=== PATIENT | female | born 1940 | race Caucasian/White ===

== ENCOUNTER 2016-12-01 15:33 | Emergency (ER) | payer MEDICARE ==
[~2016-12-01] VITALS: Ht 157.5 cm; Wt 204.2 kg
[~2016-12-01 15:33] MED LIST: ASCO500T20 PO; ASPI325T32 PO; CINNAMON PO; CIPR-225 PO; CITA10SO PO; CLN150C1RX; CTLP20T PO; DIAZ-345 PO; E400C PO; ENAL20TA PO; GLIP10TA13 PO; HCTZ12.5T; HYDR-3720 PO; HYDROCO/APAP; LEVO500T2 PO; LEVO750T24 PO; LSNP10T PO; LVF250T; LVF500T; METF1000 PO; MTF500T PO; NITR-65 PO; OMEG1CAP51 PO; TERB250T10 PO
--- OUTSIDE RECORDS SUMMARY | 2016-12-01 15:38 | XMS REPORT | Continuity of Care Document ---
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 If you do not see the information that you expected, contact Release of Information in the Health Information Management department at [phone] for further assistance in locating additional records.[facility] Active Allergies and Adverse Reactions Allergen Noted Date Severity Reactions Comments Pcn 04/12/2014 UNKNOWN Current Medications Prescription Sig. Disp. Refills Start End Date Status Date lisinopril (PRINIVIL; Take 10 mg by mouth Active ZESTRIL) 10 mg tablet daily. metFORMIN (GLUCOPHAGE) Take 500 mg by mouth Active 500 mg tablet twice daily with meals. citalopram (CELEXA) 20 mg Take 20 mg by mouth Active tablet daily. ASCORBATE CALCIUM Take by mouth daily. Active (VITAMIN C PO) FLAXSEED OIL (OMEGA 3 PO) Take 1,000 mg by mouth Active daily. Active Problems Not on file Social History Tobacco Use Types Packs/Day Years Used Date Never Assessed Plan of Care Health Maintenance Due Date Last Done Comments Physical (Comprehensive) 1947 Exam Pertussis Vaccine 1951 Tetanus Vaccine 1957 Colorectal Cancer 1990 Screening Shingles Vaccine 2000 Osteoporosis Screening 2005 Prevnar/Pneumovax (#1) 2005 Influenza Vaccine 07/05/2016 Results from Last 3 Months Not on file
[2016-12-01] MEDS ORDERED: RT-ALBUTEROL/IPRATROPIUM 3 ML (DUONEB) VIAL INH ONE (15:45)
--- NOTE | 2016-12-01 15:54 | ED General ---
General Stated Complaint: BILAT FOOT PAIN Source of Information: Patient Exam Limitations: No Limitations History of Present Illness Time Seen by Provider: 15:53 Initial Comments To ER per EMS with reports of shortness of breath since last night and a cough as well as bilateral foot pain as an ongoing issue. States that she is scheduled to see Dr. Reed on Saturday (today being Saturday). No fevers or chills. She is a bedbound diabetic. Timing/Duration: 1-2 Days Severity: Moderate Associated Systoms: CoughNo Fever/Chills, No Nausea/Vomiting Allergies and Home Medications Allergies Coded Allergies: Penicillins (Verified Allergy, Unknown, 05/01/07) Home Medications Aspirin 325 Mg Tablet.dr 650 MG PO BID PRN PRN HEADACHE (Reported) TAKES 2 (325MG) TABLETS Ciprofloxacin HCl 500 Mg Tablet #20 500 MG PO BID Prescribed by: SYLVESTER YAP on 10/04/16 1722 Enalapril Maleate 20 Mg Tablet 20 MG PO DAILY (Reported) Glipizide 10 Mg Tablet 10 MG PO DAILY (Reported) Levofloxacin 500 Mg Tablet #5 500 MG PO DAILY Prescribed by: CRISS CUMMINS on 09/06/16 1820 Metformin HCl 1,000 Mg Tablet 1,000 MG PO BID (Reported) Nitrofurantoin Monohyd/M-Cryst 100 Mg Capsule #30 1 TAB PO BID Prescribed by: STEPHANIE BYERS on 03/22/16 0721 Terbinafine HCl 250 Mg Tablet #84 250 MG PO DAILY Prescribed by: SYLVESTER YAP on 10/04/16 1722 Constitutional: see HPINo chills, No fever EENTM: see HPI Respiratory: see HPI cough short of breath Cardiovascular: no symptoms reported Genitourinary: no symptoms reported Musculoskeletal: no symptoms reported Skin: no symptoms reported Psychiatric/Neurological: No Symptoms Reported Past Sdpzbwy-Owtzli-Peechz Hx Patient Social History Former Smoker/When Quit: Sep 21, 2002 Recent Hopitalizations: Yes (APRIL 2007, LLE ULCER) Immunizations Up To Date Tetanus Booster (TDap): Unknown PED Vaccines UTD: No Seasonal Allergies Seasonal Allergies: No Surgeries HX Surgeries: Yes (OVARIAN CYST, FATTY TUMOR REMOVAL LUE) Respiratory Hx Respiratory Disorders: No Cardiovascular Hx Cardiac Disorders: Yes (NEW ONSET 03/19/16) Cardiac Disorders: Hypertension Neurological Hx Neurological Disorders: Yes (2010) Neurological Disorders: Headaches /Migraines, TIA Reproductive System Hx Reproductive Disorders: No Sexually Transmitted Disease: No HIV/AIDS: No Genitourinary Hx Genitourinary Disorders: Yes Genitourinary Disorders: UTI-Chronic Gastrointestinal Hx Gastrointestinal Disorders: Yes Gastrointestinal Disorders: Gall Bladder Disease Musculoskeletal Hx Musculoskeletal Disorders: Yes Musculoskeletal Disorders: Arthritis Endocrine Hx Endocrine Disorders: Yes (MORBID OBESITY) Endocrine Disorders: Diabetes, Non-Insulin dep HEENT HX ENT Disorders: No Cancer Hx Cancer: No Psychosocial Hx Psychiatric Problems: Yes Behavioral Health Disorders: Depression Integumentary HX Skin/Integumentary Disorder: No (cellulitis, DRY SKIN) Blood Transfusions Hx Blood Disorders: No Family Medical History Family Medial History: Alcoholism 03 FATHER FH: stomach cancer 03 MOTHER Physical Exam Vital Signs Vital Sign - Last 12Hours 12/01/16 12/01/16 15:50 15:55 Temp 98.5 Pulse 94 Resp 22 B/P 171/123 Pulse Ox 97 O2 Delivery Room Air Capillary Refill : General Appearance: No Apparent Distress WD/WN Chronically ill Obese HEENT: PERRL/EOMI TMs Normal Neck: Full Range of Motion Normal Inspection Respiratory: No Accessory Muscle Use No Respiratory Distress Wheezing (left lung mendez (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 No drainage. The erythema does not extend proximally beyond the first MTP joint of each foot. There is no cellulitis of the foot.) Neurologic/Psychiatric: Alert Oriented x3 Skin: Normal Color Warm/Dry Progress/Results/Core Measures Results/Orders Lab Results Laboratory Tests Test 12/01/16 15:48 Range/Units Alanine Aminotransferase (ALT/SGPT) 22 0-55 U/L Albumin 3.5 3.2-4.5 G/DL Alkaline Phosphatase 75 40-136 U/L Anion Gap 11 5-14 MMOL/L Aspartate Amino Transf (AST/SGOT) 36 H 5-34 U/L B-Type Natriuretic Peptide 38.0 <100.0 PG/ML BUN/Creatinine Ratio 13 Basophils # (Auto) 0.0 0.0-0.1 10^3/uL Basophils (%) (Auto) 0 0-10 % Blood Urea Nitrogen 10 7-18 MG/DL Calcium Level 8.9 8.5-10.1 MG/DL Carbon Dioxide Level 22 21-32 MMOL/L Chloride Level 104 98-107 MMOL/L Creatinine 0.79 0.60-1.30 MG/DL Eosinophils # (Auto) 0.4 H 0.0-0.3 10^3/uL Eosinophils (%) (Auto) 4 0-10 % Estimat Glomerular Filtration Rate > 60 Glucose Level 161 H 70-105 MG/DL Hematocrit 45 35-52 % Hemoglobin 15.2 11.5-16.0 G/DL Lymphocytes # (Auto) 2.8 1.0-4.0 X 10^3 Lymphocytes (%) (Auto) 29 12-44 % Mean Corpuscular Hemoglobin 31 25-34 PG Mean Corpuscular Hemoglobin Concent 34 32-36 G/DL Mean Corpuscular Volume 91 80-99 FL Mean Platelet Volume 9.4 7.4-10.4 FL Monocytes # (Auto) 0.7 0.0-1.0 X 10^3 Monocytes (%) (Auto) 7 0-12 % Neutrophils # (Auto) 5.6 1.8-7.8 X 10^3 Neutrophils (%) (Auto) 59 42-75 % Platelet Count 398 130-400 10^3/uL Potassium Level 5.2 H 3.6-5.0 MMOL/L Red Blood Count 4.93 4.35-5.85 10^6/uL Red Cell Distribution Width 14.4 10.0-14.5 % Sodium Level 137 135-145 MMOL/L Total Bilirubin 0.4 0.1-1.0 MG/DL Total Protein 6.8 6.4-8.2 G/DL White Blood Count 9.4 4.3-11.0 10^3/uL My Orders Orders-CRISS CUMMINS RETAIL SALESMAN Cbc With Automated Diff (12/01/16 15:39) Comprehensive Metabolic Panel (12/01/16 15:39) Saline Lock/Iv-Start (12/01/16 15:39) Chest 1 View, Ap/Pa Only (12/01/16 15:39) Albuterol/Ipra Inhalation Soln (Duoneb I (12/01/16 15:45) Svn Sm Volume Nebulizer Rt-Rfs (12/01/16 15:39) Saline Lock/Iv-Start (12/01/16 15:40) Metoprolol Tartrate Injection (Lopressor (12/01/16 16:00) BNP (12/01/16 15:52) Medications Given in ED Current Medications Medications Dose Ordered Sig/Jocelynn Route Start Time Stop Time Status Last Admin Dose Admin Albuterol/ Ipratropium 3 ml ONCE ONCE INH 12/01/16 15:45 12/01/16 15:46 DC 12/01/16 15:50 3 ML Metoprolol Tartrate 5 mg ONCE ONCE IV 12/01/16 16:00 12/01/16 16:01 DC 12/01/16 16:06 5 MG Vital Signs/I&O Vital Sign - Last 12Hours 12/01/16 12/01/16 15:50 15:55 Temp 98.5 Pulse 94 Resp 22 B/P 171/123 Pulse Ox 97 97 O2 Delivery Room Air Departure Impression Impression: Primary Impression: Morbid obesity Qualified Code: E66.01 - Morbid (severe) obesity due to excess calories Additional Impressions: Bronchitis Toe pain, bilateral Disposition: HOME, SELF-CARE Condition: Stable Departure-Patient Inst. Decision time for Depature: 16:38 Referrals: DIANE BYERS MD (PCP/Family) Primary Care Physician Patient Instructions: NO INSTRUCTIONS GIVEN Add. Discharge Instructions: 1. Return to ER for any concerns 2. Follow-up with your doctor next week CRISS CUMMINS APRN Dec 01, 2016 15:54
[2016-12-01 15:59] LABS: BASOPHILS % (AUTO) 0 % (0-10); EOSINOPHILS # (AUTO) 0.4 10^3/uL (0.0-0.3); EOSINOPHILS % (AUTO) 4 % (0-10); LYMPHOCYTES # (AUTO) 2.8 X 10^3 (1.0-4.0); LYMPHOCYTES % (AUTO) 29 % (12-44); MEAN CORPUSCULAR HEMOGLOBIN 31 PG (25-34); MEAN CORPUSCULAR HGB CONC 34 G/DL (32-36); MEAN CORPUSCULAR VOLUME 91 FL (80-99); MEAN PLATELET VOLUME 9.4 FL (7.4-10.4); MONOCYTES # (AUTO) 0.7 X 10^3 (0.0-1.0); MONOCYTES % (AUTO) 7 % (0-12); NEUTROPHILS # (AUTO) 5.6 X 10^3 (1.8-7.8); NEUTROPHILS % (AUTO) 59 % (42-75); PLATELET COUNT 398 10^3/uL (130-400); RED BLOOD COUNT 4.93 10^6/uL (4.35-5.85); RED CELL DISTRIBUTION WIDTH 14.4 % (10.0-14.5); WHITE BLOOD COUNT 9.4 10^3/uL (4.3-11.0)
[2016-12-01] MEDS ORDERED: meTOprolol 5 MG/5 ML (LOPRESSOR) VIAL IV ONE (16:00)
[2016-12-01 16:17] LABS: ALANINE AMINOTRANSFERASE 22 U/L (0-55); ALBUMIN 3.5 G/DL (3.2-4.5); ANION GAP 11 MMOL/L (5-14); ASPARTATE AMINO TRANSFERASE 36 U/L (5-34); BILIRUBIN,TOTAL 0.4 MG/DL (0.1-1.0); BLOOD UREA NITROGEN 10 MG/DL (7-18); BUN/CREATININE RATIO 13; CALCIUM 8.9 MG/DL (8.5-10.1); CARBON DIOXIDE 22 MMOL/L (21-32); CHLORIDE 104 MMOL/L (98-107); CREATININE SERUM 0.79 MG/DL (0.60-1.30); GFR ESTIMATED > 60; GLUCOSE 161 MG/DL (70-105); POTASSIUM 5.2 MMOL/L (3.6-5.0); SODIUM 137 MMOL/L (135-145); TOTAL PROTEIN 6.8 G/DL (6.4-8.2)
--- NOTE | 2016-12-01 16:35 | Diagnostic Imaging Report ---
INDICATION: Shortness of breath COMPARISON: 09/21/15 FINDINGS: Single view of the chest demonstrates stable cardiac enlargement. The lungs are otherwise clear. There is no pneumothorax, effusion or obvious infiltrate. IMPRESSION: Cardiac enlargement without obvious infiltrate or pulmonary edema. Consider a followup with 2 views. Dictated by: Dictated on workstation # [id number]
[2016-12-01 16:52] VITALS: BP 144/108
== END 2016-12-01 17:20 | disposition home or self-care (01) ==
LOC: EDUNIT# 15:33 → ER 15:34
DX: J40 Bronchitis, not specified as acute or chronic (principal); E66.01 Morbid (severe) obesity due to excess calories; M79.671 Pain in right foot; M79.672 Pain in left foot; Z79.84 Long term (current) use of oral hypoglycemic drugs; Z79.82 Long term (current) use of aspirin
CPT/HCPCS: 36415; 71010; 80053; 83880; 85025; 94640; 96374

== ENCOUNTER 2016-12-17 08:39 | Emergency (ER) | payer MEDICARE ==
[~2016-12-17] VITALS: Ht 157.5 cm; Wt 131.1 kg
--- OUTSIDE RECORDS SUMMARY | 2016-12-17 08:43 | XMS REPORT | Continuity of Care Document ---
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 If you do not see the information that you expected, contact Release of Information in the Health Information Management department at [phone] for further assistance in locating additional records.[facility] Active Allergies and Adverse Reactions Allergen Noted [...]
[2016-12-17 09:07] LABS: BASOPHILS % (AUTO) 0 % (0-10); EOSINOPHILS # (AUTO) 0.5 10^3/uL (0.0-0.3); EOSINOPHILS % (AUTO) 4 % (0-10); LYMPHOCYTES # (AUTO) 4.2 X 10^3 (1.0-4.0); LYMPHOCYTES % (AUTO) 34 % (12-44); MEAN CORPUSCULAR HEMOGLOBIN 31 PG (25-34); MEAN CORPUSCULAR HGB CONC 34 G/DL (32-36); MEAN CORPUSCULAR VOLUME 92 FL (80-99); MEAN PLATELET VOLUME 9.9 FL (7.4-10.4); MONOCYTES % (AUTO) 8 % (0-12); NEUTROPHILS # (AUTO) 6.6 X 10^3 (1.8-7.8); NEUTROPHILS % (AUTO) 54 % (42-75); PLATELET COUNT 352 10^3/uL (130-400); RED BLOOD COUNT 4.79 10^6/uL (4.35-5.85); WHITE BLOOD COUNT 12.3 10^3/uL (4.3-11.0)
[2016-12-17 09:23] LABS: ALBUMIN 3.4 G/DL (3.2-4.5); BILIRUBIN,TOTAL 0.7 MG/DL (0.1-1.0); CALCIUM 8.8 MG/DL (8.5-10.1); CREATININE SERUM 1.12 MG/DL (0.60-1.30); MAGNESIUM 1.3 MG/DL (1.8-2.4); POTASSIUM 4.2 MMOL/L (3.6-5.0); TOTAL PROTEIN 6.9 G/DL (6.4-8.2)
--- NOTE | 2016-12-17 09:40 | ED General ---
General Chief Complaint: Altered Mental Status Stated Complaint: STROKE Nursing Triage Note: PT BROUGHT IN BY [facility] WITH C/O AMS. PT FAMILY REPORTS THAT SHE HAS HAD SYMPTOMS FOR 3-4 DAYS. PT IS A&O X 4 AT THIS TIME, BUT HAS DYSPHASIA. PT DOES C/O MOIST PRODUCTIVE COUGH X 1 WEEK. Nursing Sepsis Screen: No Definite Risk Source of Information: Patient, EMS, Old Records Exam Limitations: No Limitations History of Present Illness Time Seen by Provider: 08:52 Initial Comments This 76-year-old woman who is completely bedbound presents via EMS from home with complaints of strokelike symptoms of expressive dysphasia. Patient is severely debilitated and does not move from her bed where she lies only on the left side. She is having particular difficulty with word finding. There appeared to be no other focal deficits although discovery of deficits could be very difficult due to severity of debility. The patient is heavily soaked in urine. She reportedly gets bedding changes and baths once per week. Family has been resistant to fdc placement in the past. Symptoms have been present for 3-4 days and unchanged during that time. There is concern she may have suffered a stroke within the past few days. Fingerstick blood sugar was 94. Allergies and Home Medications Allergies Coded Allergies: Penicillins (Verified Allergy, Unknown, 05/01/07) Home Medications Aspirin 325 Mg Tablet.dr 650 MG PO BID PRN PRN HEADACHE (Reported) TAKES 2 (325MG) TABLETS Ciprofloxacin HCl 500 Mg Tablet #20 500 MG PO BID Prescribed by: SYLVESTER YAP on 10/04/16 1722 Ciprofloxacin HCl 500 Mg Tablet #14 500 MG PO BID Prescribed by: SYLVESTER YAP on 12/17/16 1604 Enalapril Maleate 20 Mg Tablet 20 MG PO DAILY (Reported) Glipizide 10 Mg Tablet 10 MG PO DAILY (Reported) Levofloxacin 500 Mg Tablet #5 500 MG PO DAILY Prescribed by: CRISS CUMMINS on 09/06/16 1820 Magnesium Oxide 400 Mg Tablet #8 400 MG PO BID Prescribed by: SYLVESTER YAP on 12/17/16 1604 Metformin HCl 1,000 Mg Tablet 1,000 MG PO BID (Reported) Nitrofurantoin Monohyd/M-Cryst 100 Mg Capsule #30 1 TAB PO BID Prescribed by: STEPHANIE OCASIO on 03/22/16 0721 Terbinafine HCl 250 Mg Tablet #84 250 MG PO DAILY Prescribed by: SYLVESTER YAP on 10/04/16 1722 Constitutional: no symptoms reported EENTM: no symptoms reported Respiratory: no symptoms reported Cardiovascular: no symptoms reported Gastrointestinal: no symptoms reported Genitourinary: see HPI : No Musculoskeletal: see HPI Skin: no symptoms reported Psychiatric/Neurological: See HPI Hematologic/Lymphatic: No Symptoms Reported Past Bcfrkmu-Aonyku-Ajwtrs Hx Patient Social History Alcohol Use: Denies Use Recreational Drug Use: No Smoking Status: Never a Smoker Former Smoker/When Quit: Sep 21, 2002 Recent Foreign Travel: No Contact w/Someone Who Travel: No Recent Infectious Disease Expo: No Recent Hopitalizations: No Immunizations Up To Date Tetanus Booster (TDap): Unknown PED Vaccines UTD: No Seasonal Allergies Seasonal Allergies: No Surgeries HX Surgeries: Yes (OVARIAN CYST, FATTY TUMOR REMOVAL LUE) Respiratory Hx Respiratory Disorders: No Cardiovascular Hx Cardiac Disorders: Yes (NEW ONSET 03/19/16) Cardiac Disorders: Atrial Fibrillation (Atrial flutter), Hypertension Neurological Hx Neurological Disorders: Yes (TIA 2010) Neurological Disorders: Headaches /Migraines, TIA Reproductive System Hx Reproductive Disorders: No Sexually Transmitted Disease: No HIV/AIDS: No Genitourinary Hx Genitourinary Disorders: Yes Genitourinary Disorders: UTI-Chronic Gastrointestinal Hx Gastrointestinal Disorders: Yes Gastrointestinal Disorders: Gall Bladder Disease Musculoskeletal Hx Musculoskeletal Disorders: Yes Musculoskeletal Disorders: Arthritis Endocrine Hx Endocrine Disorders: Yes (MORBID OBESITY) Endocrine Disorders: Diabetes, Non-Insulin dep HEENT HX ENT Disorders: No Cancer Hx Cancer: No Psychosocial Hx Psychiatric Problems: Yes Behavioral Health Disorders: Depression Integumentary HX Skin/Integumentary Disorder: No (cellulitis, DRY SKIN) Blood Transfusions Hx Blood Disorders: No Family Medical History Family Medial History: Alcoholism 03 FATHER FH: stomach cancer 03 MOTHER Physical Exam Vital Signs Vital Sign - Last 12Hours 12/17/16 08:50 Temp 97.8 Pulse 84 Resp 20 B/P 140/71 Pulse Ox 96 O2 Delivery Room Air Capillary Refill : Less Than 3 Seconds General Appearance: No Apparent Distress WD/WN Obese HEENT: PERRL/EOMI Normal ENT Inspection Pharynx Normal Neck: Normal Inspection Supple Respiratory: Lungs Clear Normal Breath Sounds No Accessory Muscle Use No Respiratory Distress Cardiovascular: Regular Rate, Rhythm No Edema No Murmur Gastrointestinal: Normal Bowel Sounds Soft Back: Normal Inspection Extremity: No Pedal Edema Neurologic/Psychiatric: Alert Oriented x3 ski maker wood II-XII Norm as Tested Other ( Generalized weakness. Mood is depressed and irritable) Skin: Normal Color Other (There is a large area of erythema on the patient's back and left side likely consistent of early skin breakdown or stage I ulcer. Skin is also moist with urine.) Progress/Results/Core Measures Results/Orders Lab Results Laboratory Tests Test 12/17/16 08:55 12/17/16 12:15 Range/Units Activated Partial Thromboplast Time 23 L 24-35 SEC Alanine Aminotransferase (ALT/SGPT) 14 0-55 U/L Albumin 3.4 3.2-4.5 G/DL Alkaline Phosphatase 79 40-136 U/L Anion Gap 12 5-14 MMOL/L Aspartate Amino Transf (AST/SGOT) 26 5-34 U/L BUN/Creatinine Ratio 18 Basophils # (Auto) 0.0 0.0-0.1 10^3/uL Basophils (%) (Auto) 0 0-10 % Blood Urea Nitrogen 20 H 7-18 MG/DL Calcium Level 8.8 8.5-10.1 MG/DL Carbon Dioxide Level 23 21-32 MMOL/L Chloride Level 103 98-107 MMOL/L Creatinine 1.12 0.60-1.30 MG/DL Eosinophils # (Auto) 0.5 H 0.0-0.3 10^3/uL Eosinophils (%) (Auto) 4 0-10 % Estimat Glomerular Filtration Rate 47 Glucose Level 118 H 70-105 MG/DL Hematocrit 44 35-52 % Hemoglobin 14.8 11.5-16.0 G/DL INR Comment 1.0 0.8-1.4 Lymphocytes # (Auto) 4.2 H 1.0-4.0 X 10^3 Lymphocytes (%) (Auto) 34 12-44 % Magnesium Level 1.3 L 1.8-2.4 MG/DL Mean Corpuscular Hemoglobin 31 25-34 PG Mean Corpuscular Hemoglobin Concent 34 32-36 G/DL Mean Corpuscular Volume 92 80-99 FL Mean Platelet Volume 9.9 7.4-10.4 FL Monocytes # (Auto) 1.0 0.0-1.0 X 10^3 Monocytes (%) (Auto) 8 0-12 % Neutrophils # (Auto) 6.6 1.8-7.8 X 10^3 Neutrophils (%) (Auto) 54 42-75 % Platelet Count 352 130-400 10^3/uL Potassium Level 4.2 3.6-5.0 MMOL/L Prothrombin Time 13.0 12.2-14.7 SEC Red Blood Count 4.79 4.35-5.85 10^6/uL Red Cell Distribution Width 14.0 10.0-14.5 % Sodium Level 138 135-145 MMOL/L TSH [place] Testing 1.90 0.35-4.94 UIU/ML Total Bilirubin 0.7 0.1-1.0 MG/DL Total Protein 6.9 6.4-8.2 G/DL White Blood Count 12.3 H 4.3-11.0 10^3/uL Urine Amorphous Sediment LARGE THADDEUS URATES H /LPF Urine Bacteria NEGATIVE /HPF Urine Bilirubin 1+ H NEGATIVE Urine Casts NONE /LPF Urine Clarity VERY CLOUDY H Urine Color YELLOW Urine Crystals NONE /LPF Urine Culture Indicated YES Urine Glucose (UA) NEGATIVE NEGATIVE Urine Ketones 1+ H NEGATIVE Urine Leukocyte Esterase 3+ H NEGATIVE Urine Mucus NEGATIVE /LPF Urine Nitrite NEGATIVE NEGATIVE Urine Protein 4+ NEGATIVE Urine RBC 10-25 H /HPF Urine RBC (Auto) 5+ H NEGATIVE Urine Specific [place] 1.025 H 1.016-1.022 Urine Squamous Epithelial Cells 5-10 /HPF Urine Urobilinogen 1 NORMAL MG/DL Urine WBC 25-50 H /HPF Urine Yeast LARGE H /HPF Urine pH 6 5-9 My Orders Orders-SYLVESTER CHUNG MD Cbc With Automated Diff (12/17/16 08:49) Comprehensive Metabolic Panel (12/17/16 08:49) Magnesium (12/17/16 08:49) Protime With Inr (12/17/16 08:49) Partial Thromboplastin Time (12/17/16 08:49) Thyroid Analyzer (12/17/16 08:49) Ua Culture If Indicated (12/17/16 08:49) Saline Lock/Iv-Start (12/17/16 08:49) Ekg Tracing (12/17/16 08:49) Catheter(Urinary) Insert & Ass 03,15 (12/17/16 08:49) Monitor-Rhythm Ecg Trace Only (12/17/16 08:49) Chest 1 View, Ap/Pa Only (12/17/16 08:49) Urine Culture (12/17/16 12:15) Levofloxacin 500 Mg/100 Ml Iv (Levaquin (12/17/16 13:00) Ct Head Wo-R/O Stroke (12/17/16 13:18) Magnesium Oxide Tablet (Mag Ox Tablet) (12/17/16 15:45) Medications Given in ED Current Medications Medications Dose Ordered Sig/Jocelynn Route Start Time Stop Time Status Last Admin Dose Admin Levofloxacin/ Dextrose 100 ml @ 100 mls/hr ONCE ONCE IV 12/17/16 13:00 12/17/16 13:59 DC 12/17/16 13:28 100 MLS/HR Magnesium Oxide 400 mg ONCE ONCE PO 12/17/16 15:45 12/17/16 15:46 DC 12/17/16 16:10 400 MG Vital Signs/I&O Vital Sign - Last 12Hours 12/17/16 16:15 Temp 97.8 Pulse 76 Resp 20 Pulse Ox 96 Blood Pressure Mean: 94 Progress Note : Progress Note This was a very confusing case for evaluation. Symptoms were subacute and not clearly stroke related. CT of the head was not initially performed because she was felt to be too heavy for CT scan based on stated weight from EMS. However, a weight bed was eventually brought down from the floor the patient was weighed. She was found to be [address] scan was performed. I had a long conversation with the patient and family about the challenges they face with care at home. I encouraged them to explore nursing facilities. They are adamantly opposed to this idea. EKG was difficult to read due to tremoring artifact but patient may be again in a trial flutter. Patient did not identify anticoagulants on her medication list. She will need to discuss pursuing anticoagulation again with her primary care provider and/or scholarship counselor. Since symptoms have been present for 3-4 days and have been unchanged during that time, admission was not felt necessary. Admission would make more sense if patient wanted to pursue placement but that is not the case. Patient was found to have urinary tract infection for which she was given a dose of Levaquin by IV route. Case was reviewed with Dr. Ocasio because those concerned about her ability to follow-up. I suggested home health which he will try to arrange for the patient. ECG Initial ECG Impression Date: Dec 17, 2016 Initial ECG Impression Time: 09:17 Initial ECG Rate: 95 Comment Probable atrial flutter versus sinus rhythm with artifact. Rhythm is slightly irregular. Prior EKG demonstrated atrial flutter in comparison. No acute ST elevation or depression. Right axis deviation. Diagnostic Imaging Diagonstic Imaging: CT Plain Films/CT/US/NM/MRI: head Comments CT head viewed by me and report reviewed. See report below: NAME: RAYMUNDO TORRES MED REC#: [id number] PT STATUS: REG ER : 1940 PHYSICIAN: SYLVESTER CHUNG MD ADMIT DATE: 12/17/16/ER Draft Date of Exam:12/17/16 CT HEAD WO-R/O STROKE EXAM: CT head. TECHNIQUE: Noncontrast axial images of the brain were obtained. INDICATION: Altered mental status. FINDINGS: The lab technologist explains difficult positioning on this patient and the patient could not place her arm below the level of the head for the scan. This results in artifact. There is in addition mild motion artifact also adding to the problem resulting in decreased visualization, particularly within the posterior fossa. There is no intracranial hemorrhage. There are periventricular white matter hypodensities compatible with chronic microvascular ischemic changes, more prominent on the right side. There is no hydrocephalus. No extra-axial fluid collection is seen. IMPRESSION: Difficult scan with artifacts as explained. No intracranial hemorrhage identified. Dictated on workstation # [id number] Dict: 12/17/16 1422 Trans: 12/17/16 1440 [facility] [id number] Interpreted by: ANDREAS MARTINI MD Diagonstic Imaging: Xray Plain Films/CT/US/NM/MRI: chest Comments Chest x-ray viewed by me and report reviewed. See report below: NAME: RAYMUNDO TORRES MED REC#: [id number] PT STATUS: REG ER : 1940 PHYSICIAN: SYLVESTER CHUNG MD ADMIT DATE: 12/17/16/ER Signed Date of Exam: 12/17/16 CHEST 1 VIEW, AP/PA ONLY INDICATION: Cough, shortness of breath. FINDINGS: Increased opacity in the left base laterally, the left diaphragm obscured of its lateral third. There appears to be lower lobe peripheral pulmonary consolidation. Pleural fluid superimposed could not be excluded. Right lung clear. Heart size mildly enlarged, unchanged. IMPRESSION: Progressive left basilar opacity with peripheral lower lobe consolidation and likely superimposed pleural fluid. Dictated by: Dictated on workstation # [id number] Dict: 12/17/16 1003 Trans: 12/17/16 1157 [place] [id number] Interpreted by: ARMANDO STANTON Electronically signed by:ARMANDO STANTON 12/17/16 1200 Departure Impression Impression: Primary Impression: Expressive dysphasia Additional Impressions: Urinary tract infection Qualified Code: N39.0 - Urinary tract infection, site not specified Debility Hypomagnesemia Atrial flutter Qualified Code: I48.92 - Unspecified atrial flutter Disposition: HOME, SELF-CARE Condition: Improved Departure-Patient Inst. Decision time for Depature: 03:00 Referrals: DIANE OCASIO MD (PCP/Family) Primary Care Physician Patient Instructions: Jack Catheter, Female, Urinary Tract Infections in Adults Add. Discharge Instructions: Complete your antibiotics as prescribed. Follow-up with Dr. Ocasio soon as possible. Contact his office to arrange follow-up and home health. Follow-up also with his office in 48 hours to review urine culture results to ensure you' re on an appropriate antibiotic. Return to the ER if symptoms worsen. All discharge instructions reviewed with patient and/or family. Voiced understanding. Scripts Magnesium Oxide (Magox 400)400 Mg [id number] Mg PO BID #8 TAB Prov:SYLVESTER CHUNG MD 12/17/16 Ciprofloxacin HCl (Cipro)500 Mg [id number] Mg PO BID #14 TAB Prov:SYLVESTER CHUNG MD 12/17/16 Copy Copies To 1: DIANE OCASIO MD Copies To 2: RON MITCHELL MD, JOSHUA T MD Dec 17, 2016 09:40
--- NOTE | 2016-12-17 10:21 | Diagnostic Imaging Report ---
INDICATION: Cough, shortness of breath. FINDINGS: Increased opacity in the left base laterally, the left diaphragm obscured of its lateral third. There appears to be lower lobe peripheral pulmonary consolidation. Pleural fluid superimposed could not be excluded. Right lung clear. Heart size mildly enlarged, unchanged. IMPRESSION: Progressive left basilar opacity with peripheral lower lobe consolidation and likely superimposed pleural fluid. Dictated by: Dictated on workstation # [id number]
[2016-12-17 12:22] LABS: KETONES,URINE 1+ (NEGATIVE); LEUKOCYTE ESTERASE ,URINE 3+ (NEGATIVE); NITRITE,URINE NEGATIVE (NEGATIVE); PH,URINE 6 (5-9); PROTEIN,URINE 4+ (NEGATIVE); UROBILINOGEN,URINE 1 MG/DL (NORMAL)
[2016-12-17 12:32] LABS: BILIRUBIN,URINE 1+ (NEGATIVE); WBC,URINE 25-50 /HPF; YEAST,URINE LARGE /HPF
[2016-12-17] MEDS ORDERED: LEVOFLOXACIN 500 MG/100 ML IV 100 ML IV ONE (13:00)
--- NOTE | 2016-12-17 14:40 | Diagnostic Imaging Report ---
EXAM: CT head. TECHNIQUE: Noncontrast axial images of the brain were obtained. INDICATION: Altered mental status. FINDINGS: The sterile processing technologist explains difficult positioning on this patient and the patient could not place her arm below the level of the head for the scan. This results in artifact. There is in addition mild motion artifact also adding to the problem resulting in decreased visualization, particularly within the posterior fossa. There is no intracranial hemorrhage. There are periventricular white matter hypodensities compatible with chronic microvascular ischemic changes, more prominent on the right side. There is no hydrocephalus. No extra-axial fluid collection is seen. IMPRESSION: Difficult scan with artifacts as explained. No intracranial hemorrhage identified. Dictated by: Dictated on workstation # [id number]
[2016-12-17] MEDS ORDERED: MAGNESIUM OXIDE (MAG-OX)400 MG TAB PO ONE (15:45)
[2016-12-17] MEDS ORDERED: CIPR-225 PO (16:04)
[2016-12-17] MEDS ORDERED: MAGN400T29 PO (16:04)
[2016-12-17 16:15] VITALS: BP 148/79
== END 2016-12-17 16:15 | disposition home or self-care (01) ==
LOC: EDUNIT# 08:39 → ER 08:39
DX: R41.82 Altered mental status, unspecified (principal); R47.02 Dysphasia; N39.0 Urinary tract infection, site not specified; R54 Age-related physical debility; E83.42 Hypomagnesemia; I48.92 Unspecified atrial flutter; I10 Essential (primary) hypertension; E11.9 Type 2 diabetes mellitus without complications; E66.9 Obesity, unspecified; Z79.82 Long term (current) use of aspirin; Z79.899 Other long term (current) drug therapy; Z79.84 Long term (current) use of oral hypoglycemic drugs
CPT/HCPCS: 36415; 51702; 70450; 71010; 80053; 81000; 83735; 84443; 85025; 85610; 85730; 87088; 93005; 93041; 96365

== ENCOUNTER → 2017-03-28 | Outpatient (CLI) | payer MEDICARE ==
[~2017-03-28] MED LIST changes: +MAGN400T29 PO
[2017-03-28 12:55] LABS: BILIRUBIN,URINE NEGATIVE (NEGATIVE); KETONES,URINE 1+ (NEGATIVE); LEUKOCYTE ESTERASE ,URINE 3+ (NEGATIVE); NITRITE,URINE POSITIVE (NEGATIVE); PH,URINE 5 (5-9); PROTEIN,URINE 3+ (NEGATIVE); UROBILINOGEN,URINE NORMAL (NORMAL)
[2017-03-28 13:11] LABS: WBC,URINE >100 /HPF; YEAST,URINE LARGE /HPF
== END ==
LOC: HH 12:50
PROVIDERS: ATTEND Family Medicine
DX: N39.0 Urinary tract infection, site not specified (principal)
CPT/HCPCS: 81000; 87077; 87088; 87186

== ENCOUNTER 2018-02-05 14:07 | Inpatient (IN) | payer MEDICARE ==
[~2018-02-05] VITALS: Ht 167.6 cm; Wt 119.0 kg
[~2018-02-05 14:07] MED LIST changes: -TERB250T10 PO; +TERB250T16 PO
--- OUTSIDE RECORDS SUMMARY | 2018-02-05 14:15 | XMS REPORT | Continuity of Care Document ---
Author Author [facility] Organization [facility] Address Unknown Phone Unavailable Allergies Active Description Code Type Severity Reaction Onset Reported/Identified Relationship to Patient Clinical Status Yes Penicillins [id number] Drug Allergy Unknown N/A 05/01/2007 Medications There is no data. 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 08/24/2011 Ot 401.9 HYPERTENSION NOS 08/24/2011 Ot 682.6 CELLULITIS OF LEG 08/24/2011 Ot V85.45 BODY MASS INDEX 70 AND OVER, ADULT 04/17/2013 ZEESHAN BARTH, DIANE R Ot 709.9 SKIN DISORDER NOS 02/16/2014 DIANE BYERS MD R Ot 041.49 OTHER AND UNSPECIFIED ESCHERICHIA COLI [ 02/16/2014 DIANE BYERS MD R Ot 112.2 CANDIDIAS UROGENITAL NEC 02/16/2014 DIANE BYERS MD R Ot 250.00 DIAB AARTI WO COMPL, TYPE II OR UNSPEC TY 02/16/2014 DIANE BYERS MD R Ot 276.8 HYPOPOTASSEMIA 02/16/2014 DIANE BYERS MD R Ot 278.01 MORBID OBESITY 02/16/2014 DIANE BYERS MD R Ot 311 DEPRESSIVE DISORDER NEC 02/16/2014 DIANE BYERS MD R Ot 401.9 HYPERTENSION NOS 02/16/2014 DIANE BYERS MD R Ot 590.10 AC PYELONEPHRITIS NOS 02/16/2014 DIANE BYERS MD R Ot V03.82 PROPHYLACTIC VACC AGAINST STREPTOCOCCUS 02/16/2014 DIANE BYERS MD R Ot V12.54 PERSONAL HX OF TIA, CEREBRAL INFARCTION 02/16/2014 DIANE BYERS MD Ot V85.45 BODY MASS INDEX 70 AND OVER, ADULT 02/26/2014 DIANE BYERS MD Ot 250.00 DIAB AARTI WO COMPL, TYPE II OR UNSPEC TY 02/26/2014 DIANE BYERS MD Ot 272.0 PURE HYPERCHOLESTEROLEM 02/26/2014 DIANE BYERS MD Ot 278.01 MORBID OBESITY 02/26/2014 DIANE BYERS MD Ot 311 DEPRESSIVE DISORDER NEC 02/26/2014 DIANE BYERS MD Ot 401.9 HYPERTENSION NOS 02/26/2014 DIANE BYERS MD Ot 574.10 CHOLELITH W CHOLECYS NEC 02/26/2014 DIANE BYERS MD Ot 599.0 URIN TRACT INFECTION NOS 02/26/2014 DIANE BYERS MD Ot V12.54 PERSONAL HX OF TIA, CEREBRAL INFARCTION 02/26/2014 DIANE BYERS MD Ot V15.82 HISTORY OF TOBACCO USE 02/26/2014 DIANE BYERS MD Ot V85.44 BODY MASS INDEX 60.0-69.9, ADULT 09/21/2015 Ot 788.1 09/21/2015 Ot 791.9 09/23/2015 DIANE BYERS MD Ot E11.65 TYPE 2 DIABETES MELLITUS WITH HYPERGLYCE 09/23/2015 DIANE BYERS MD Ot E66.01 MORBID (SEVERE) OBESITY DUE TO EXCESS CA 09/23/2015 DIANE BYERS MD Ot E86.9 VOLUME DEPLETION, UNSPECIFIED 09/23/2015 DIANE BYERS MD Ot N39.0 URINARY TRACT INFECTION, SITE NOT SPECIF 09/23/2015 DIANE BYERS MD Ot Z68.43 BODY MASS INDEX (BMI) 50-59.9 , ADULT 01/25/2016 Ot 788.1 01/25/2016 Ot 791.9 03/22/2016 DIANE BYERS MD Ot E11.9 TYPE 2 DIABETES MELLITUS WITHOUT COMPLIC 03/22/2016 DIANE BYERS MD Ot E66.01 MORBID (SEVERE) OBESITY DUE TO EXCESS CA 03/22/2016 SEGLIE MD, DIANE R Ot E78.5 HYPERLIPIDEMIA, UNSPECIFIED 03/22/2016 DIANE BYERS MD R Ot E83.42 HYPOMAGNESEMIA 03/22/2016 DIANE BYERS MD R Ot F32.9 MAJOR DEPRESSIVE DISORDER, SINGLE EPISOD 03/22/2016 DIANE BYERS MD R Ot I10 ESSENTIAL (PRIMARY) HYPERTENSION 03/22/2016 DIANE BYERS MD R Ot I48.92 UNSPECIFIED ATRIAL FLUTTER 03/22/2016 DIANE BYERS MD R Ot N39.0 URINARY TRACT INFECTION, SITE NOT SPECIF 03/22/2016 DIANE BYERS MD Ot R11.2 NAUSEA WITH VOMITING, UNSPECIFIED 03/22/2016 DIANE BYERS MD Ot R51 HEADACHE 03/22/2016 DIANE BYERS MD R Ot Z68.43 BODY MASS INDEX (BMI) 50-59.9 , ADULT 03/22/2016 DIANE BYERS MD R Ot Z86.73 PRSNL HX OF TIA (TIA), AND CEREB INFRC W 03/22/2016 DIANE BYERS MD R Ot Z87.891 PERSONAL HISTORY OF NICOTINE DEPENDENCE 03/22/2016 DIANE BYERS MD R Ot Z91.19 PATIENT'S NONCOMPLIANCE W [facility] 06/01/2016 Ot 788.1 DYSURIA 06/01/2016 Ot 791.9 ABN URINE FINDINGS NEC 09/06/2016 CRISS CUMMINS APRN Ot E11.621 TYPE 2 DIABETES MELLITUS WITH FOOT ULCER 09/06/2016 CRISS CUMMINS APRN Ot E66.01 MORBID (SEVERE) OBESITY DUE TO EXCESS CA 09/06/2016 CRISS CUMMINS DIRECTOR OF RESTAURANT Ot I10 ESSENTIAL (PRIMARY) HYPERTENSION 09/06/2016 CRISS CUMMINS APRN Ot L97.501 NON-PRS CHR ULCER OTH PRT UNSP FOOT LIMI 09/06/2016 CRISS CUMMINS APRN Ot L97.511 NON-PRS CHRONIC ULCER OTH PRT R FOOT GOMEZ 09/06/2016 CRISS CUMMINS APRN Ot L97.521 NON-PRS CHRONIC ULCER OTH PRT L FOOT GOMEZ 09/06/2016 CRISS CUMMINS APRN Ot N39.0 URINARY TRACT INFECTION, SITE NOT SPECIF 09/06/2016 CRISS CUMMINS APRN Ot Z79.82 USP (CURRENT) USE OF ASPIRIN 09/06/2016 CRISS CUMMINS APRN Ot Z79.84 USP (CURRENT) USE OF ORAL HYPOGLYC 09/06/2016 CRISS CUMMINS APRN Ot Z79.899 OTHER SPINDLE SANDER (CURRENT) DRUG THERAPY 09/07/2016 CRISS CUMMINS APRN Ot E11.621 TYPE 2 DIABETES MELLITUS WITH FOOT ULCER 09/07/2016 CRISS CUMMINS APRN Ot E66.01 MORBID (SEVERE) OBESITY DUE TO EXCESS CA 09/07/2016 CRISS CUMMINS DIRECTOR OF RESTAURANT Ot I10 ESSENTIAL (PRIMARY) HYPERTENSION 09/07/2016 CRISS CUMMINS APRN Ot L97.501 NON-PRS CHR ULCER OTH PRT UNSP FOOT LIMI 09/07/2016 CRISS CUMMINS APRN Ot L97.511 NON-PRS CHRONIC ULCER OTH PRT R FOOT GOMEZ 09/07/2016 CRISS CUMMINS APRN Ot L97.521 NON-PRS CHRONIC ULCER OTH PRT L FOOT GOMEZ 09/07/2016 CRISS CUMMINS APRN Ot N39.0 URINARY TRACT INFECTION, SITE NOT SPECIF 09/07/2016 CRISS CUMMINS APRN Ot Z79.82 SPINDLE SANDER (CURRENT) USE OF ASPIRIN 09/07/2016 CRISS CUMMINS APRN Ot Z79.84 SPINDLE SANDER (CURRENT) USE OF ORAL HYPOGLYC 09/07/2016 CRISS CUMMINS APRN Ot Z79.899 OTHER SPINDLE SANDER (CURRENT) DRUG THERAPY 09/09/2016 CRISS CUMMINS APRN Ot E11.621 TYPE 2 DIABETES MELLITUS WITH FOOT ULCER 09/09/2016 CRISS CUMMINS APRN Ot E66.01 MORBID (SEVERE) OBESITY DUE TO EXCESS CA 09/09/2016 CRISS CUMMINS APRN Ot I10 ESSENTIAL (PRIMARY) HYPERTENSION 09/09/2016 CRISS CUMMINS APRN Ot L97.501 NON-PRS CHR ULCER OTH PRT UNSP FOOT LIMI 09/09/2016 CRISS CUMMINS DIRECTOR OF RESTAURANT Ot L97.511 NON-PRS CHRONIC ULCER OTH PRT R FOOT GOMEZ 09/09/2016 CRISS CUMMINS APRN Ot L97.521 NON-PRS CHRONIC ULCER OTH PRT L FOOT GOMEZ 09/09/2016 CRISS CUMMINS APRN Ot N39.0 URINARY TRACT INFECTION, SITE NOT SPECIF 09/09/2016 CRISS CUMMINS DIRECTOR OF RESTAURANT Ot Z79.82 SPINDLE SANDER (CURRENT) USE OF ASPIRIN 09/09/2016 CRISS CUMMINS DIRECTOR OF RESTAURANT Ot Z79.84 USP (CURRENT) USE OF ORAL HYPOGLYC 09/09/2016 CRISS CUMMINS DIRECTOR OF RESTAURANT Ot Z79.899 OTHER USP (CURRENT) DRUG THERAPY 10/04/2016 SYLVESTER CHUNG MD T Ot B35.1 TINEA UNGUIUM 10/04/2016 SYLVESTER CHUNG MD Ot E11.9 TYPE 2 DIABETES MELLITUS WITHOUT COMPLIC 10/04/2016 SYLVESTER CHUNG MD Ot E66.01 MORBID (SEVERE) OBESITY DUE TO EXCESS CA 10/04/2016 SYLVESTER CHUNG MD Ot I10 ESSENTIAL (PRIMARY) HYPERTENSION 10/04/2016 SYLVESTER CHUNG MD Ot L03.031 CELLULITIS OF RIGHT TOE 10/04/2016 SYLVESTER CHUNG MD Ot L03.032 CELLULITIS OF LEFT TOE 10/04/2016 SYLVESTER CHUNG MD Ot M79.674 PAIN IN RIGHT TOE(S) 10/04/2016 SYLVESTER CHUNG MD Ot Z79.82 SPINDLE SANDER (CURRENT) USE OF ASPIRIN 10/04/2016 SYLVESTER CHUNG MD T Ot Z79.84 USP (CURRENT) USE OF ORAL HYPOGLYC 10/04/2016 SYLVESTER CHUNG MD Ot Z79.899 OTHER USP (CURRENT) DRUG THERAPY 10/05/2016 SYLVESTER CHUNG MD Ot B35.1 TINEA UNGUIUM 10/05/2016 SYLVESTER CHUNG MD Ot E11.9 TYPE 2 DIABETES MELLITUS WITHOUT COMPLIC 10/05/2016 SYLVESTER CHUNG MD Ot E66.01 MORBID (SEVERE) OBESITY DUE TO EXCESS CA 10/05/2016 SYLVESTER CHUNG MD Ot I10 ESSENTIAL (PRIMARY) HYPERTENSION 10/05/2016 SYLVESTER CHUNG MD Ot L03.031 CELLULITIS OF RIGHT TOE 10/05/2016 SYLVESTER CHUNG MD T Ot L03.032 CELLULITIS OF LEFT TOE 10/05/2016 SHELDON BARTH, SYLVESTER Hitchcock Ot M79.674 PAIN IN RIGHT TOE(S) 10/05/2016 SYLVESTER CHUNG MD Ot Z79.82 USP (CURRENT) USE OF ASPIRIN 10/05/2016 SYLVESTER CHUNG MD Ot Z79.84 USP (CURRENT) USE OF ORAL HYPOGLYC 10/05/2016 SYLVESTER CHUNG MD Ot Z79.899 OTHER SPINDLE SANDER (CURRENT) DRUG THERAPY 12/01/2016 CRISS CUMMINS DIRECTOR OF RESTAURANT Ot E66.01 MORBID (SEVERE) OBESITY DUE TO EXCESS CA 12/01/2016 CRISS CUMMINS DIRECTOR OF RESTAURANT Ot J40 BRONCHITIS, NOT SPECIFIED ACUTE OR CH 12/01/2016 CRISS CUMMINS DIRECTOR OF RESTAURANT Ot M79.671 PAIN IN RIGHT FOOT 12/01/2016 CRISS CUMMINS DIRECTOR OF RESTAURANT Ot M79.672 PAIN IN LEFT FOOT 12/01/2016 CRISS CUMMINS DIRECTOR OF RESTAURANT Ot Z79.82 SPINDLE SANDER (CURRENT) USE OF ASPIRIN 12/01/2016 CRISS CUMMINS DIRECTOR OF RESTAURANT Ot Z79.84 USP (CURRENT) USE OF ORAL HYPOGLYC 12/03/2016 CRISS CUMMINS APRN Ot E66.01 MORBID (SEVERE) OBESITY DUE TO EXCESS CA 12/03/2016 CRISS CUMMINS DIRECTOR OF RESTAURANT Ot J40 BRONCHITIS, NOT SPECIFIED ACUTE OR CH 12/03/2016 CRISS CUMMINS DIRECTOR OF RESTAURANT Ot M79.671 PAIN IN RIGHT FOOT 12/03/2016 CRISS CUMMINS DIRECTOR OF RESTAURANT Ot M79.672 PAIN IN LEFT FOOT 12/03/2016 CRISS CUMMINS DIRECTOR OF RESTAURANT Ot Z79.82 SPINDLE SANDER (CURRENT) USE OF ASPIRIN 12/03/2016 CRISS CUMMINS DIRECTOR OF RESTAURANT Ot Z79.84 SPINDLE SANDER (CURRENT) USE OF ORAL HYPOGLYC 12/05/2016 CRISS CUMMINS DIRECTOR OF RESTAURANT Ot E66.01 MORBID (SEVERE) OBESITY DUE TO EXCESS CA 12/05/2016 CRISS CUMMINS DIRECTOR OF RESTAURANT Ot J40 BRONCHITIS, NOT SPECIFIED ACUTE OR CH 12/05/2016 CRISS CUMMINS DIRECTOR OF RESTAURANT Ot M79.671 PAIN IN RIGHT FOOT 12/05/2016 CRISS CUMMINS DIRECTOR OF RESTAURANT Ot M79.672 PAIN IN LEFT FOOT 12/05/2016 CRISS CUMMINS DIRECTOR OF RESTAURANT Ot Z79.82 SPINDLE SANDER (CURRENT) USE OF ASPIRIN 12/05/2016 CRISS CUMMINS DIRECTOR OF RESTAURANT Ot Z79.84 USP (CURRENT) USE OF ORAL HYPOGLYC 12/07/2016 CRISS CUMMINS APRN Ot E66.01 MORBID (SEVERE) OBESITY DUE TO EXCESS CA 12/07/2016 CRISS CUMMINS DIRECTOR OF RESTAURANT Ot J40 BRONCHITIS, NOT SPECIFIED ACUTE OR CH 12/07/2016 CRISS CUMMINS DIRECTOR OF RESTAURANT Ot M79.671 PAIN IN RIGHT FOOT 12/07/2016 CRISS CUMMINS DIRECTOR OF RESTAURANT Ot M79.672 PAIN IN LEFT FOOT 12/07/2016 CRISS CUMMINS DIRECTOR OF RESTAURANT Ot Z79.82 USP (CURRENT) USE OF ASPIRIN 12/07/2016 CRISS CUMMINS APRN Ot Z79.84 USP (CURRENT) USE OF ORAL HYPOGLYC 12/17/2016 SYLVESTER CHUNG MD Ot E11.9 TYPE 2 DIABETES MELLITUS WITHOUT COMPLIC 12/17/2016 SYLVESTER CHUNG MD Ot E66.9 OBESITY, UNSPECIFIED 12/17/2016 SYLVESTER CHUNG MD Ot E83.42 HYPOMAGNESEMIA 12/17/2016 SYLVESTER CHUNG MD Ot I10 ESSENTIAL (PRIMARY) HYPERTENSION 12/17/2016 SYLVESTER CHUNG MD Ot I48.92 UNSPECIFIED ATRIAL FLUTTER 12/17/2016 SYLVESTER CHUNG MD Ot N39.0 URINARY TRACT INFECTION, SITE NOT SPECIF 12/17/2016 SYLVESTER CHUNG MD Ot R41.82 ALTERED MENTAL STATUS, UNSPECIFIED 12/17/2016 SYLVESTER CHUNG MD Ot R47.02 DYSPHASIA 12/17/2016 SYLVESTER CHUNG MD Ot R54 AGE-RELATED PHYSICAL DEBILITY 12/17/2016 SYLVESTER CHUNG MD Ot Z79.82 USP (CURRENT) USE OF ASPIRIN 12/17/2016 SYLVESTER CHUNG MD Ot Z79.84 SPINDLE SANDER (CURRENT) USE OF ORAL HYPOGLYC 12/17/2016 SYLVESTER CHUNG MD Ot Z79.899 OTHER SPINDLE SANDER (CURRENT) DRUG THERAPY 12/19/2016 SYLVESTER CHUNG MD Ot E11.9 TYPE 2 DIABETES MELLITUS WITHOUT COMPLIC 12/19/2016 SYLVESTER CHUNG MD Ot E66.9 OBESITY, UNSPECIFIED 12/19/2016 SYLVESTER CHUNG MD Ot E83.42 HYPOMAGNESEMIA 12/19/2016 SYLVESTER CHUNG MD Ot I10 ESSENTIAL (PRIMARY) HYPERTENSION 12/19/2016 SYLVESTER CHUNG MD Ot I48.92 UNSPECIFIED ATRIAL FLUTTER 12/19/2016 SYLVESTER CHUNG MD Ot N39.0 URINARY TRACT INFECTION, SITE NOT SPECIF 12/19/2016 SYLVESTER CHUNG MD Ot R41.82 ALTERED MENTAL STATUS, UNSPECIFIED 12/19/2016 SYLVESTER CHUNG MD Ot R47.02 DYSPHASIA 12/19/2016 SYLVESTER CHUNG MD Ot R54 AGE-RELATED PHYSICAL DEBILITY 12/19/2016 SYLVESTER CHUNG MD Ot Z79.82 SPINDLE SANDER (CURRENT) USE OF ASPIRIN 12/19/2016 SYLVESTER CHUNG MD Ot Z79.84 SPINDLE SANDER (CURRENT) USE OF ORAL HYPOGLYC 12/19/2016 SYLVESTER CHUNG MD Ot Z79.899 OTHER SPINDLE SANDER (CURRENT) DRUG THERAPY 12/19/2016 SYLVESTER CHUNG MD Ot E11.9 TYPE 2 DIABETES MELLITUS WITHOUT COMPLIC 12/19/2016 SYLVESTER CHUNG MD Ot E66.9 OBESITY, UNSPECIFIED 12/19/2016 SYLVESTER CHUNG MD Ot E83.42 HYPOMAGNESEMIA 12/19/2016 SYLVESTER CHUNG MD Ot I10 ESSENTIAL (PRIMARY) HYPERTENSION 12/19/2016 SYLVESTER CHUNG MD Ot I48.92 UNSPECIFIED ATRIAL FLUTTER 12/19/2016 SYLVESTER CHUNG MD Ot N39.0 URINARY TRACT INFECTION, SITE NOT SPECIF 12/19/2016 SYLVESTER CHUNG MD Ot R41.82 ALTERED MENTAL STATUS, UNSPECIFIED 12/19/2016 SYLVESTER CHUNG MD Ot R47.02 DYSPHASIA 12/19/2016 SYLVESTER CHUNG MD, Ot R54 AGE-RELATED PHYSICAL DEBILITY 12/19/2016 SYLVESTER CHUNG MD, Ot Z79.82 USP (CURRENT) USE OF ASPIRIN 12/19/2016 SYLVESTER CHUNG MD Ot Z79.84 SPINDLE SANDER (CURRENT) USE OF ORAL HYPOGLYC 12/19/2016 SYLVESTER CHUNG MD Ot Z79.899 OTHER USP (CURRENT) DRUG THERAPY 12/22/2016 SYLVESTER CHUNG MD Ot E11.9 TYPE 2 DIABETES MELLITUS WITHOUT COMPLIC 12/22/2016 SYLVESTER CHUNG MD Ot E66.9 OBESITY, UNSPECIFIED 12/22/2016 SYLVESTER CHUNG MD Ot E83.42 HYPOMAGNESEMIA 12/22/2016 SYLVESTER CHUNG MD Ot I10 ESSENTIAL (PRIMARY) HYPERTENSION 12/22/2016 SYLVESTER CHUNG MD Ot I48.92 UNSPECIFIED ATRIAL FLUTTER 12/22/2016 SYLVESTER CHUNG MD Ot N39.0 URINARY TRACT INFECTION, SITE NOT SPECIF 12/22/2016 SYLVESTER CHUNG MD Ot R41.82 ALTERED MENTAL STATUS, UNSPECIFIED 12/22/2016 SYLVESTER CHUNG MD Ot R47.02 DYSPHASIA 12/22/2016 SYLVESTER CHUNG MD Ot R54 AGE-RELATED PHYSICAL DEBILITY 12/22/2016 SYLVESTER CHUNG MD Ot Z79.82 USP (CURRENT) USE OF ASPIRIN 12/22/2016 SYLVESTER CHUNG MD Ot Z79.84 SPINDLE SANDER (CURRENT) USE OF ORAL HYPOGLYC 12/22/2016 SYLVESTER CHUNG MD Ot Z79.899 OTHER USP (CURRENT) DRUG THERAPY 04/18/2017 ZEESHAN ABRTH, DIANE Quiroz Ot N39.0 URINARY TRACT INFECTION, SITE NOT SPECIF Procedures There is no data. Results Test Result Range Gram stain microscopy - 09/06/16 17:10 GRAM STAIN RESULT FEW WBC'S, NO BACTERIA OBSERVED NRG Bacteria identification in wound by culture - 09/06/16 17:10 Bacteria identification in wound by culture [id number] NRG FREE TEXT EXTERNAL (T. RUBRUM COMPLEX; SEE COMMENTS) NRG QUANTITY OF GROWTH Scant Growth NRG Complete urinalysis with reflex to culture - 09/06/16 17:30 Urine color determination YELLOW NRG Urine clarity determination SLIGHTLY CLOUDY NRG Urine pH measurement by test strip 6 5-9 Specific gravity of urine by test strip 1.010 1.016- 1.022 Urine protein assay by test strip, semi-quantitative NEGATIVE NEGATIVE Urine glucose detection by automated test strip NEGATIVE NEGATIVE Erythrocytes detection in urine sediment by light microscopy NEGATIVE NEGATIVE Urine ketones detection by automated test strip NEGATIVE NEGATIVE Urine nitrite detection by test strip POSITIVE NEGATIVE Urine total bilirubin detection by test strip NEGATIVE NEGATIVE Urine urobilinogen measurement by automated test strip (mass/volume) NORMAL NORMAL Urine leukocyte esterase detection by dipstick 2+ NEGATIVE Automated urine sediment erythrocyte count by microscopy (number/high power field) NONE NRG Automated urine sediment leukocyte count by microscopy (number/high power field ) [HPF] NRG Bacteria detection in urine sediment by light microscopy LARGE NRG Squamous epithelial cells detection in urine sediment by light microscopy 25-50 NRG Crystals detection in urine sediment by light microscopy NONE NRG Casts detection in urine sediment by light microscopy NONE NRG Mucus detection in urine sediment by light microscopy NEGATIVE NRG Complete urinalysis with reflex to culture YES NRG Bacterial urine culture - 09/06/16 17:30 Bacterial urine culture [id number] NRG COLONY COUNT >100,000/ML NRG FTX;REPORTABLE SENSITIVITY REPORTED AT 1046, 09-08-16 NR Bacterial susceptibility panel - 09/06/16 17:30 Gentamicin susceptibility test by minimum inhibitory concentration < = NRG Trimethoprim/sulfamethoxazole susceptibility test by minimum inhibitoryconcentration <= NRG Ampicillin susceptibility test by minimum inhibitory concentration 4 NRG Tobramycin susceptibility test by minimum inhibitory concentration < = NRG Cefazolin susceptibility test by minimum inhibitory concentration < = NRG Ceftriaxone susceptibility test by minimum inhibitory concentration <= NRG Ampicillin/sulbactam susceptibility test by minimum inhibitory concentration <= NRG Piperacillin/tazobactam susceptibility test by minimum inhibitory concentration <= NRG Ciprofloxacin susceptibility test by minimum inhibitory concentration <= NRG Meropenem susceptibility test by minimum inhibitory concentration < = NRG Nitrofurantoin susceptibility test by minimum inhibitory concentration <= NRG Aztreonam susceptibility test by minimum inhibitory concentration < = NRG Extended spectrum beta lactamase (ESBL) producing bacteria susceptibility test by minimum inhibitory concentration - NRG Bacterial blood culture - 09/06/16 17:40 Bacterial blood culture NG NRG Complete blood count (CBC) with automated white blood cell (WBC) differential - 09/06/16 17:48 Blood leukocytes automated count (number/volume) 10.5 10*3/uL 4.3-11.0 Blood erythrocytes automated count (number/volume) 5.01 10*6/uL 4.35-5.85 Venous blood hemoglobin measurement (mass/volume) 15.4 g/dL 11.5-16.0 Blood hematocrit (volume fraction) 45 % 35-52 Automated erythrocyte mean corpuscular volume 89 [foz_us] 80-99 Automated erythrocyte mean corpuscular hemoglobin (mass per erythrocyte) 31 pg 25-34 Automated erythrocyte mean corpuscular hemoglobin concentration measurement ( mass/volume) 35 g/dL 32-36 Automated erythrocyte distribution width ratio 13.1 % 10.0-14.5 Automated blood platelet count (count/volume) 309 10*3/uL 130-400 Automated blood platelet mean volume measurement 9.7 [foz_us] 7.4-10.4 Automated blood neutrophils/100 leukocytes 52 % 42-75 Automated blood lymphocytes/100 leukocytes 35 % 12-44 Blood monocytes/100 leukocytes 7 % 0-12 Automated blood eosinophils/100 leukocytes 5 % 0-10 Automated blood basophils/100 leukocytes 1 % 0-10 Blood neutrophils automated count (number/volume) 5.4 10*3 1.8-7.8 Blood lymphocytes automated count (number/volume) 3.7 10*3 1.0-4.0 Blood monocytes automated count (number/volume) 0.8 10*3 0.0-1.0 Automated eosinophil count 0.6 10*3/uL 0.0-0.3 Automated blood basophil count (count/volume) 0.1 10*3/uL 0.0-0.1 Comprehensive metabolic panel - 09/06/16 17:48 Serum or plasma sodium measurement (moles/volume) 135 mmol/L 135-145 Serum or plasma potassium measurement (moles/volume) 4.1 mmol/L 3.6-5.0 Serum or plasma chloride measurement (moles/volume) 104 mmol/L 98-107 Carbon dioxide 22 mmol/L 21-32 Serum or plasma anion gap determination (moles/volume) 9 mmol/L 5-14 Serum or plasma urea nitrogen measurement (mass/volume) 11 mg/dL 7-18 Serum or plasma creatinine measurement (mass/volume) 0.70 mg/dL 0.60-1.30 Serum or plasma urea nitrogen/creatinine mass ratio 16 NRG Serum or plasma creatinine measurement with calculation of estimated glomerular filtration rate > NRG Serum or plasma glucose measurement (mass/volume) 109 mg/dL 70-105 Serum or plasma calcium measurement (mass/volume) 8.6 mg/dL 8.5-10.1 Serum or plasma total bilirubin measurement (mass/volume) 0.5 mg/dL 0.1-1.0 Serum or plasma alkaline phosphatase measurement (enzymatic activity/volume) 78 U/L 40-136 Serum or plasma aspartate aminotransferase measurement (enzymatic activity/ volume) 13 U/L 5-34 Serum or plasma alanine aminotransferase measurement (enzymatic activity/volume ) 14 U/L 0-55 Serum or plasma protein measurement (mass/volume) 6.3 g/dL 6.4-8.2 Serum or plasma albumin measurement (mass/volume) 3.2 g/dL 3.2-4.5 Bacterial blood culture - 09/06/16 17:48 FREE TEXT EXTERNAL SEE COMMENTS NR QUANTITY OF GROWTH Isolated [facility] Bacterial blood culture [id number] [facility] Complete blood count (CBC) with automated white blood cell (WBC) differential - 12/01/16 15:48 Blood leukocytes automated count (number/volume) 9.4 10*3/uL 4.3-11.0 Blood erythrocytes automated count (number/volume) 4.93 10*6/uL 4.35-5.85 Venous blood hemoglobin measurement (mass/volume) 15.2 g/dL 11.5-16.0 Blood hematocrit (volume fraction) 45 % 35-52 Automated erythrocyte mean corpuscular volume 91 [foz_us] 80-99 Automated erythrocyte mean corpuscular hemoglobin (mass per erythrocyte) 31 pg 25-34 Automated erythrocyte mean corpuscular hemoglobin concentration measurement ( mass/volume) 34 g/dL 32-36 Automated erythrocyte distribution width ratio 14.4 % 10.0-14.5 Automated blood platelet count (count/volume) 398 10*3/uL 130-400 Automated blood platelet mean volume measurement 9.4 [foz_us] 7.4-10.4 Automated blood neutrophils/100 leukocytes 59 % 42-75 Automated blood lymphocytes/100 leukocytes 29 % 12-44 Blood monocytes/100 leukocytes 7 % 0-12 Automated blood eosinophils/100 leukocytes 4 % 0-10 Automated blood basophils/100 leukocytes 0 % 0-10 Blood neutrophils automated count (number/volume) 5.6 10*3 1.8-7.8 Blood lymphocytes automated count (number/volume) 2.8 10*3 1.0-4.0 Blood monocytes automated count (number/volume) 0.7 10*3 0.0-1.0 Automated eosinophil count 0.4 10*3/uL 0.0-0.3 Automated blood basophil count (count/volume) 0.0 10*3/uL 0.0-0.1 Comprehensive metabolic panel - 12/01/16 15:48 Serum or plasma sodium measurement (moles/volume) 137 mmol/L 135-145 Serum or plasma potassium measurement (moles/volume) 5.2 mmol/L 3.6-5.0 Serum or plasma chloride measurement (moles/volume) 104 mmol/L 98-107 Carbon dioxide 22 mmol/L 21-32 Serum or plasma anion gap determination (moles/volume) 11 mmol/L 5-14 Serum or plasma urea nitrogen measurement (mass/volume) 10 mg/dL 7-18 Serum or plasma creatinine measurement (mass/volume) 0.79 mg/dL 0.60-1.30 Serum or plasma urea nitrogen/creatinine mass ratio 13 NRG Serum or plasma creatinine measurement with calculation of estimated glomerular filtration rate > NRG Serum or plasma glucose measurement (mass/volume) 161 mg/dL 70-105 Serum or plasma calcium measurement (mass/volume) 8.9 mg/dL 8.5-10.1 Serum or plasma total bilirubin measurement (mass/volume) 0.4 mg/dL 0.1-1.0 Serum or plasma alkaline phosphatase measurement (enzymatic activity/volume) 75 U/L 40-136 Serum or plasma aspartate aminotransferase measurement (enzymatic activity/ volume) 36 U/L 5-34 Serum or plasma alanine aminotransferase measurement (enzymatic activity/volume ) 22 U/L 0-55 Serum or plasma protein measurement (mass/volume) 6.8 g/dL 6.4-8.2 Serum or plasma albumin measurement (mass/volume) 3.5 g/dL 3.2-4.5 Serum or plasma lithium measurement (moles/volume) - 12/01/16 15:48 BNP level 38.0 pg/mL <100.0 Complete blood count (CBC) with automated white blood cell (WBC) differential - 12/17/16 08:55 Blood leukocytes automated count (number/volume) 12.3 10*3/uL 4.3-11.0 Blood erythrocytes automated count (number/volume) 4.79 10*6/uL 4.35-5.85 Venous blood hemoglobin measurement (mass/volume) 14.8 g/dL 11.5-16.0 Blood hematocrit (volume fraction) 44 % 35-52 Automated erythrocyte mean corpuscular volume 92 [foz_us] 80-99 Automated erythrocyte mean corpuscular hemoglobin (mass per erythrocyte) 31 pg 25-34 Automated erythrocyte mean corpuscular hemoglobin concentration measurement ( mass/volume) 34 g/dL 32-36 Automated erythrocyte distribution width ratio 14.0 % 10.0-14.5 Automated blood platelet count (count/volume) 352 10*3/uL 130-400 Automated blood platelet mean volume measurement 9.9 [foz_us] 7.4-10.4 Automated blood neutrophils/100 leukocytes 54 % 42-75 Automated blood lymphocytes/100 leukocytes 34 % 12-44 Blood monocytes/100 leukocytes 8 % 0-12 Automated blood eosinophils/100 leukocytes 4 % 0-10 Automated blood basophils/100 leukocytes 0 % 0-10 Blood neutrophils automated count (number/volume) 6.6 10*3 1.8-7.8 Blood lymphocytes automated count (number/volume) 4.2 10*3 1.0-4.0 Blood monocytes automated count (number/volume) 1.0 10*3 0.0-1.0 Automated eosinophil count 0.5 10*3/uL 0.0-0.3 Automated blood basophil count (count/volume) 0.0 10*3/uL 0.0-0.1 PT panel in platelet poor plasma by coagulation assay - 12/17/16 08:55 Prothrombin time (PT) in platelet poor plasma by coagulation assay 13.0 s 12.2-14.7 INR in platelet poor plasma or blood by coagulation assay 1.0 0.8-1.4 Activated partial thromboplastin time (aPTT) in platelet poor plasma bycoagulation assay - 12/17/16 08:55 Activated partial thromboplastin time (aPTT) in platelet poor plasma bycoagulation assay 23 s 24-35 Comprehensive metabolic panel - 12/17/16 08:55 Serum or plasma sodium measurement (moles/volume) 138 mmol/L 135-145 Serum or plasma potassium measurement (moles/volume) 4.2 mmol/L 3.6-5.0 Serum or plasma chloride measurement (moles/volume) 103 mmol/L 98-107 Carbon dioxide 23 mmol/L 21-32 Serum or plasma anion gap determination (moles/volume) 12 mmol/L 5-14 Serum or plasma urea nitrogen measurement (mass/volume) 20 mg/dL 7-18 Serum or plasma creatinine measurement (mass/volume) 1.12 mg/dL 0.60-1.30 Serum or plasma urea nitrogen/creatinine mass ratio 18 NRG Serum or plasma creatinine measurement with calculation of estimated glomerular filtration rate 47 NRG Serum or plasma glucose measurement (mass/volume) 118 mg/dL 70-105 Serum or plasma calcium measurement (mass/volume) 8.8 mg/dL 8.5-10.1 Serum or plasma total bilirubin measurement (mass/volume) 0.7 mg/dL 0.1-1.0 Serum or plasma alkaline phosphatase measurement (enzymatic activity/volume) 79 U/L 40-136 Serum or plasma aspartate aminotransferase measurement (enzymatic activity/ volume) 26 U/L 5-34 Serum or plasma alanine aminotransferase measurement (enzymatic activity/volume ) 14 U/L 0-55 Serum or plasma protein measurement (mass/volume) 6.9 g/dL 6.4-8.2 Serum or plasma albumin measurement (mass/volume) 3.4 g/dL 3.2-4.5 Magnesium - 12/17/16 08:55 Magnesium 1.3 mg/dL 1.8-2.4 Serum or plasma thyrotropin measurement by detection limit <=0.05 miu/l (units/ volume) - 12/17/16 08:55 Serum or plasma thyrotropin measurement by detection limit <=0.05 miu/l (units/ volume) 1.90 u[iU]/mL 0.35-4.94 Complete urinalysis with reflex to culture - 12/17/16 12:15 Urine color determination YELLOW NRG Urine clarity determination VERY CLOUDY NRG Urine pH measurement by test strip 6 5-9 Specific gravity of urine by test strip 1.025 1.016- 1.022 Urine protein assay by test strip, semi-quantitative 4+ NEGATIVE Urine glucose detection by automated test strip NEGATIVE NEGATIVE Erythrocytes detection in urine sediment by light microscopy 5+ NEGATIVE Urine ketones detection by automated test strip 1+ NEGATIVE Urine nitrite detection by test strip NEGATIVE NEGATIVE Urine total bilirubin detection by test strip 1+ NEGATIVE Urine urobilinogen measurement by automated test strip (mass/volume) 1 mg/dL NORMAL Urine leukocyte esterase detection by dipstick 3+ NEGATIVE Automated urine sediment erythrocyte count by microscopy (number/high power field) [HPF] NRG Automated urine sediment leukocyte count by microscopy (number/high power field ) [HPF] NRG Bacteria detection in urine sediment by light microscopy NEGATIVE NRG Squamous epithelial cells detection in urine sediment by light microscopy 5-10 NRG Crystals detection in urine sediment by light microscopy NONE NRG Casts detection in urine sediment by light microscopy NONE NRG Mucus detection in urine sediment by light microscopy NEGATIVE NRG Complete urinalysis with reflex to culture YES NRG Yeast detection in urine sediment by light microscopy LARGE NRG Amorphous sediment detection in urine sediment by light microscopy LARGE THADDEUS URATES NRG Bacterial urine culture - 12/17/16 12:15 Bacterial urine culture [id number] NRG COLONY COUNT 10,000/ML - 100,000/ML NRG FTX;REPORTABLE NO FURTHER STUDIES UNLESS REQUESTED NRG Complete urinalysis with reflex to culture - 03/28/17 12:50 Urine color determination NICOLASA NRG Urine clarity determination SLIGHTLY CLOUDY NRG Urine pH measurement by test strip 5 5-9 Specific gravity of urine by test strip 1.025 1.016- 1.022 Urine protein assay by test strip, semi-quantitative 3+ NEGATIVE Urine glucose detection by automated test strip NEGATIVE NEGATIVE Erythrocytes detection in urine sediment by light microscopy 2+ NEGATIVE Urine ketones detection by automated test strip 1+ NEGATIVE Urine nitrite detection by test strip POSITIVE NEGATIVE Urine total bilirubin detection by test strip NEGATIVE NEGATIVE Urine urobilinogen measurement by automated test strip (mass/volume) NORMAL NORMAL Urine leukocyte esterase detection by dipstick 3+ NEGATIVE Automated urine sediment erythrocyte count by microscopy (number/high power field) [HPF] NRG Automated urine sediment leukocyte count by microscopy (number/high power field ) > [HPF] NRG Bacteria detection in urine sediment by light microscopy MODERATE NRG Squamous epithelial cells detection in urine sediment by light microscopy 10-25 NRG Crystals detection in urine sediment by light microscopy NONE NRG Casts detection in urine sediment by light microscopy NONE NRG Mucus detection in urine sediment by light microscopy NEGATIVE NRG Complete urinalysis with reflex to culture YES NRG Yeast detection in urine sediment by light microscopy LARGE NRG Bacterial urine culture - 03/28/17 12:50 Bacterial urine culture [id number] NRG COLONY COUNT >100,000/ML NRG FTX;REPORTABLE SENSITIVITY REPORTED 03/30/17 9:45 NRG FREE TEXT ENTRY 2 PLUS, NRG FREE TEXT ENTRY 3 LACTOBACILLUS 10-100,000/ML NRG Bacterial susceptibility panel - 03/28/17 12:50 Gentamicin susceptibility test by minimum inhibitory concentration < = NRG Trimethoprim/sulfamethoxazole susceptibility test by minimum inhibitoryconcentration <= NRG Ampicillin susceptibility test by minimum inhibitory concentration < = NRG Tobramycin susceptibility test by minimum inhibitory concentration < = NRG Cefazolin susceptibility test by minimum inhibitory concentration < = NRG Ceftriaxone susceptibility test by minimum inhibitory concentration <= NRG Ampicillin/sulbactam susceptibility test by minimum inhibitory concentration <= NRG Piperacillin/tazobactam susceptibility test by minimum inhibitory concentration <= NRG Ciprofloxacin susceptibility test by minimum inhibitory concentration <= NRG Meropenem susceptibility test by minimum inhibitory concentration < = NRG Nitrofurantoin susceptibility test by minimum inhibitory concentration <= NRG Aztreonam susceptibility test by minimum inhibitory concentration < = NRG Extended spectrum beta lactamase (ESBL) producing bacteria susceptibility test by minimum inhibitory concentration - [facility] Bacterial susceptibility panel - 03/28/17 12:50 Gentamicin susceptibility test by minimum inhibitory concentration R NRG Vancomycin susceptibility test by minimum inhibitory concentration > = NRG Levofloxacin susceptibility test by minimum inhibitory concentration 1 NRG Tetracycline susceptibility test by minimum inhibitory concentration <= NRG Ampicillin susceptibility test by minimum inhibitory concentration < = NRG Nitrofurantoin susceptibility test by minimum inhibitory concentration <= NRG Linezolid susceptibility test by minimum inhibitory concentration 2 NRG Encounters ACCT No. Visit Date/Time Discharge Status Pt. Type Provider Facility Loc./Unit Complaint [id number] 10/16/2017 15:36:00 10/16/2017 23:59:59 CLS Preadmit ZEESHAN BARTH, DIANE Quiroz [facility] UTI [id number] 03/28/2017 12:50:00 03/28/2017 23:59:59 CLS Outpatient DIANE BYERS MD [facility] URINARY INCONTINANCE, DM, HTN, OBESITY [id number] 12/17/2016 08:39:00 12/17/2016 16:15:00 DIS Emergency SYLVESTER CHUNG MD [facility] ER STROKE [id number] 12/01/2016 15:34:00 12/01/2016 17:20:00 DIS Emergency CRISS CUMMINS APRN [facility] ER BILAT FOOT PAIN [id number] 10/04/2016 14:39:00 10/04/2016 23:59:59 CLS Emergency SYLVESTER CHUNG MD [facility] ER TOE PAIN [id number] 09/06/2016 17:08:00 09/06/2016 18:38:00 DIS Emergency CRISS CUMMINS APRN [facility] ER ISSUES WITH TOES [id number] 03/19/2016 11:15:00 03/22/2016 12:35:00 DIS Inpatient DIANE BYERS MD [facility] 4TH UTI;NAUSEA/VOMITING; HEADACHE;MORBID OBESITY;HTN; [id number] 09/21/2015 11:22:00 09/23/2015 12:25:00 DIS Inpatient DIANE BYERS MD [facility] 4TH UTI DEHYDRATION [id number] 02/18/2014 10:56:00 02/26/2014 15:20:00 DIS Inpatient DIANE BYERS MD [facility] 4TH ABD PAIN/UTI [id number] 02/07/2014 21:25:00 02/16/2014 11:30:00 DIS Inpatient DIANE BYERS MD [facility] 4TH ACUTE PYELONEPHRITIS [id number] 04/15/2013 16:10:00 04/17/2013 11:19:00 DIS Inpatient DIANE BYERS MD [facility] 4TH SEVERE CELLULITIS [id number] 08/31/2011 13:45:00 Document Registration [id number] 08/13/2011 14:27:00 Document Registration
[2018-02-05 14:54] LABS: BASOPHILS # (AUTO) 0.1 10^3/uL (0.0-0.1); BASOPHILS % (AUTO) 0 % (0-10); EOSINOPHILS # (AUTO) 0.3 10^3/uL (0.0-0.3); EOSINOPHILS % (AUTO) 2 % (0-10); HEMATOCRIT 45 % (35-52); HEMOGLOBIN 14.7 G/DL (11.5-16.0); LYMPHOCYTES % (AUTO) 13 % (12-44); MEAN CORPUSCULAR HEMOGLOBIN 30 PG (25-34); MEAN CORPUSCULAR HGB CONC 33 G/DL (32-36); MEAN CORPUSCULAR VOLUME 91 FL (80-99); MEAN PLATELET VOLUME 9.5 FL (7.4-10.4); MONOCYTES % (AUTO) 6 % (0-12); NEUTROPHILS # (AUTO) 12.5 X 10^3 (1.8-7.8); NEUTROPHILS % (AUTO) 79 % (42-75); PLATELET COUNT 528 10^3/uL (130-400); RED BLOOD COUNT 4.94 10^6/uL (4.35-5.85); RED CELL DISTRIBUTION WIDTH 15.2 % (10.0-14.5); WHITE BLOOD COUNT 15.8 10^3/uL (4.3-11.0)
[2018-02-05 15:00] VITALS: BP 97/56
[2018-02-05] MEDS ORDERED: NS IV 1000 ML 1,000 ML IV SCH (15:00)
[2018-02-05 15:10] LABS: ALBUMIN 2.8 GM/DL (3.2-4.5); BILIRUBIN,TOTAL 0.5 MG/DL (0.1-1.0); CALCIUM 8.8 MG/DL (8.5-10.1); CREATININE SERUM 1.03 MG/DL (0.60-1.30); POTASSIUM 5.1 MMOL/L (3.6-5.0); TOTAL PROTEIN 6.6 GM/DL (6.4-8.2)
[2018-02-05] MEDS ORDERED: fentaNYL INJECTION 100 MCG/2 ML AMP IVP ONE (15:15)
[2018-02-05 15:18] LABS: ANISOCYTOSIS SLIGHT; BAND NEUTROPHILS 5 %; BASOPHILS % (MANUAL) 0 %; EOSINOPHILS % (MANUAL) 2 %; LYMPHOCYTES % (MANUAL) 10 %; MONOCYTES % (MANUAL) 6 %; NEUTROPHILS % (MANUAL) 77 %
--- NOTE | 2018-02-05 15:24 | ED GU-Female ---
General Chief Complaint: -Female Stated Complaint: POSS UTI Source: patient Exam Limitations: no limitations History of Present Illness Date Seen by Provider: Feb 05, 2018 Time Seen by Provider: 15:19 Initial Comments To ER with reports of reduced urine output, poor intake for the past few days according to home health. However the states that she's had normal urine output and intake. Patient is bedbound at home. She arrives per EMS. Timing/Duration: constant Severity/Quality: moderate Allergies and Home Medications Allergies Coded Allergies: Penicillins (Verified Allergy, Unknown, 05/01/07) Home Medications Aspirin 325 Mg Tablet.dr, 650 MG PO BID PRN for HEADACHE, (Reported) TAKES 2 (325MG) TABLETS Ciprofloxacin HCl 500 Mg Tablet, 500 MG PO BID Prescribed by: SYLVESTER YAP on 10/04/16 172 Ciprofloxacin HCl 500 Mg Tablet, 500 MG PO BID Prescribed by: SYLVESTER YAP on 12/17/16 1604 Enalapril Maleate 20 Mg Tablet, 20 MG PO DAILY, (Reported) Glipizide 10 Mg Tablet, 10 MG PO DAILY, (Reported) Levofloxacin 500 Mg Tablet, 500 MG PO DAILY Prescribed by: CRISS CUMMINS on 09/06/16 1820 Magnesium Oxide 400 Mg Tablet, 400 MG PO BID Prescribed by: SYLVESTER YAP on 12/17/16 1604 Metformin HCl 1,000 Mg Tablet, 1,000 MG PO BID, (Reported) Nitrofurantoin Monohyd/M-Cryst 100 Mg Capsule, 1 TAB PO BID Prescribed by: STEPHANIE BYERS on 03/22/16 0721 Terbinafine HCl 250 Mg Tablet, 250 MG PO DAILY Prescribed by: SYLVESTER YAP on 10/04/16 1722 Patient Home Medication List Home Medication List Reviewed: Yes Constitutional: see HPI EENTM: see HPI Respiratory: no symptoms reported Cardiovascular: no symptoms reported Genitourinary: no symptoms reported Musculoskeletal: see HPI Skin: no symptoms reported Psychiatric/Neurological: No Symptoms Reported Past Jfpjfly-Awmpls-Nhapey Hx Patient Social History Alcohol Use: Denies Use Recreational Drug Use: No Smoking Status: Unknown if Ever Smoked Recent Hopitalizations: No Immunizations Up To Date Tetanus Booster (TDap): Unknown PED Vaccines UTD: No Seasonal Allergies Seasonal Allergies: No Surgeries History of Surgeries: Yes (OVARIAN CYST, FATTY TUMOR REMOVAL LUE) Respiratory History of Respiratory Disorde: No Cardiovascular History of Cardiac Disorders: Yes (NEW ONSET 03/19/16) Cardiac Disorders: Atrial Fibrillation, Hypertension Neurological History of Neurological Disord: Yes (TIA 2010) Neurological Disorders: Headaches /Migraines, TIA Reproductive System Hx Reproductive Disorders: No Sexually Transmitted Disease: No HIV/AIDS: No Genitourinary Genitourinary Disorders: UTI-Chronic Gastrointestinal History of Gastrointestinal Di: Yes Gastrointestinal Disorders: Gall Bladder Disease Musculoskeletal History of Musculoskeletal Dis: Yes Musculoskeletal Disorders: Arthritis Endocrine History of Endocrine Disorders: Yes (MORBID OBESITY) Endocrine Disorders: Diabetes, Non-Insulin dep Cancer History of Cancer: No Psychosocial History of Psychiatric Problem: Yes Behavioral Health Disorders: Depression Integumentary History of Skin or Integumenta: No (cellulitis, DRY SKIN) Blood Transfusions History of Blood Disorders: No Family Medical History Family Medial History: Alcoholism 03 FATHER FH: stomach cancer 03 MOTHER Physical Exam Vital Signs Vital Signs - First Documented 02/05/18 02/05/18 14:07 16:25 Temp 98.0 Pulse 140 Resp 22 B/P (MAP) 88/42 (57) Pulse Ox 95 O2 Delivery Nasal Cannula O2 Flow Rate 2.00 Capillary Refill : General Appearance: WD/WN, no apparent distress, obese, other (patient has a candidal infection in every fold including behind the knee, the chest full, underneath the breast, underneath the abdominal fold, on the left side of her neck. She has exudate dried on the left side of her face. There is a terrible odor about her, she has skin breakdown on the left as well as circumferential erythema to the left arm consistent with cellulitis. She has a chronic indwelling Jack catheter. She screams with any type of movement. is at the bedside and assures me he can take care of her when she goes home. I advised him this is not possible and her lack of care is to the point of elder neglect. He is still resistant to even consider fci placement. Her blood pressure is 80/43 and she has only one small superficial vein in the right forearm which I started a 22-gauge IV in. We will give pain medication and roll her onto her back and started a central line despite her complaints of pain when on her back. I did discuss risks of infection pneumothorax and carotid artery injury with the and the benefits of having this since she does not have any other IV access.) HEENT: PERRL/EOMI, normal ENT inspection Neck: non-tender, full range of motion Cardiovascular: regular rate, rhythm, no murmur Respiratory: no respiratory distress, no accessory muscle use Gastrointestinal: normal bowel sounds, non tender Neurologic/Psychiatric: alert, disoriented x 3 Skin: warm/dry, other (candidal infection to every skin fold with exudate from any of these including dried exudate on the left side of her face, skin breakdown to the left chest face and arm. Patient states that she always lays on her left side.) Progress/Results/Core Measures Suspected Sepsis SIRS Temperature: Pulse: Respiratory Rate: Laboratory Tests 02/05/18 14:09: White Blood Count 15.8H Blood Pressure / Mean: Laboratory Tests 02/05/18 14:09: Creatinine 1.03, Platelet Count 528H, Total Bilirubin 0.5 Results/Orders Lab Results Laboratory Tests Test 02/05/18 14:09 02/05/18 14:29 Range/Units White Blood Count 15.8 H 4.3-11.0 10^3/uL Red Blood Count 4.94 4.35-5.85 10^6/uL Hemoglobin 14.7 11.5-16.0 G/DL Hematocrit 45 35-52 % Mean Corpuscular Volume 91 80-99 FL Mean Corpuscular Hemoglobin 30 25-34 PG Mean Corpuscular Hemoglobin Concent 33 32-36 G/DL Red Cell Distribution Width 15.2 H 10.0-14.5 % Platelet Count 528 H 130-400 10^3/uL Mean Platelet Volume 9.5 7.4-10.4 FL Neutrophils (%) (Auto) 79 H 42-75 % Lymphocytes (%) (Auto) 13 12-44 % Monocytes (%) (Auto) 6 0-12 % Eosinophils (%) (Auto) 2 0-10 % Basophils (%) (Auto) 0 0-10 % Neutrophils # (Auto) 12.5 H 1.8-7.8 X 10^3 Lymphocytes # (Auto) 2.0 1.0-4.0 X 10^3 Monocytes # (Auto) 1.0 0.0-1.0 X 10^3 Eosinophils # (Auto) 0.3 0.0-0.3 10^3/uL Basophils # (Auto) 0.1 0.0-0.1 10^3/uL Neutrophils % (Manual) 77 % Lymphocytes % (Manual) 10 % Monocytes % (Manual) 6 % Eosinophils % (Manual) 2 % Basophils % (Manual) 0 % Metamyelocytes % % Band Neutrophils 5 % Anisocytosis SLIGHT Sodium Level 137 135-145 MMOL/L Potassium Level 5.1 H 3.6-5.0 MMOL/L Chloride Level 105 98-107 MMOL/L Carbon Dioxide Level 19 L 21-32 MMOL/L Anion Gap 13 5-14 MMOL/L Blood Urea Nitrogen 35 H 7-18 MG/DL Creatinine 1.03 0.60-1.30 MG/DL Estimat Glomerular Filtration Rate 52 BUN/Creatinine Ratio 34 Glucose Level 184 H 70-105 MG/DL Calcium Level 8.8 8.5-10.1 MG/DL Total Bilirubin 0.5 0.1-1.0 MG/DL Aspartate Amino Transf (AST/SGOT) 15 5-34 U/L Alanine Aminotransferase (ALT/SGPT) 11 0-55 U/L Alkaline Phosphatase 90 40-136 U/L Total Protein 6.6 6.4-8.2 GM/DL Albumin 2.8 L 3.2-4.5 GM/DL Urine Color YELLOW Urine Clarity VERY CLOUDY H Urine pH 8 5-9 Urine Specific [place] 1.010 L 1.016-1.022 Urine Protein 3+ H NEGATIVE Urine Glucose (UA) NEGATIVE NEGATIVE Urine Ketones NEGATIVE NEGATIVE Urine Nitrite NEGATIVE NEGATIVE Urine Bilirubin NEGATIVE NEGATIVE Urine Urobilinogen 1 NORMAL MG/DL Urine Leukocyte Esterase 3+ H NEGATIVE Urine RBC (Auto) 4+ H NEGATIVE Urine RBC 10-25 H /HPF Urine WBC 50-100 H /HPF Urine Crystals NONE /LPF Urine Bacteria LARGE H /HPF Urine Casts NONE /LPF Urine Mucus NEGATIVE /LPF Urine Culture Indicated YES My Orders Orders - CRISS CUMMINS APRN Cbc With Automated Diff (02/05/18 14:46) Comprehensive Metabolic Panel (02/05/18 14:46) Ua Culture If Indicated (02/05/18 14:46) Blood Culture (02/05/18 14:46) Lactic Acid Analyzer (02/05/18 14:46) Ns Iv 1000 Ml (Sodium Chloride 0.9%) (02/05/18 15:00) Manual Differential (02/05/18 14:09) Fentanyl Injection (Sublimaze Injection (02/05/18 15:15) Urine Culture (02/05/18 14:29) Consult Physician (02/05/18 16:39) Chest 1 View, Ap/Pa Only (02/05/18 17:02) Medications Given in ED Current Medications Medications Dose Ordered Sig/Jocelynn Route Start Time Stop Time Status Last Admin Dose Admin Fentanyl Citrate 50 mcg ONCE ONCE IVP 02/05/18 15:15 02/05/18 15:16 DC 02/05/18 15:23 50 MCG Vital Signs/I&O Vital Sign - Last 12Hours 02/05/18 02/05/18 14:07 16:25 Temp 98.0 Pulse 140 99 Resp 22 20 B/P (MAP) 88/42 (57) 104/75 (85) Pulse Ox 95 98 O2 Delivery Nasal Cannula Nasal Cannula O2 Flow Rate 2.00 Capillary Refill : Departure Communication (Admissions) Time/Spoke to Admitting Phy: 17:[address] Perry. She will be down to admit the patient. I did attempt to place a central line right jugular but was unsuccessful 1 attempt so I contacted Dr. Longoria who came and placed a central line. Impression Impression: Primary Impression: Volume depletion Additional Impressions: inabilty to care for self Urinary tract infection Intertrigo Morbid obesity Disposition: ADMITTED INPATIENT Condition: Stable Admissions Decision to Admit Reason: Admit from ER (General) Decision to Admit/Date: Feb 05, 2018 Time/Decision to Admit Time: 16:30 Departure-Patient Inst. Referrals: DIANE BYERS MD (PCP/Family) Primary Care Physician CRISS CUMMINS APRN Feb 05, 2018 15:24
[2018-02-05 16:22] LABS: BILIRUBIN,URINE NEGATIVE (NEGATIVE); CLARITY,URINE VERY CLOUDY; GLUCOSE, URINE (UA) NEGATIVE (NEGATIVE); KETONES,URINE NEGATIVE (NEGATIVE); LEUKOCYTE ESTERASE ,URINE 3+ (NEGATIVE); NITRITE,URINE NEGATIVE (NEGATIVE); PH,URINE 8 (5-9); PROTEIN,URINE 3+ (NEGATIVE); UROBILINOGEN,URINE 1 MG/DL (NORMAL)
[2018-02-05 16:25] VITALS: BP 104/75
[2018-02-05 16:30] LABS: COLOR,URINE YELLOW
[2018-02-05] MEDS ORDERED: NS IV 1000 ML 1,000 ML IV PRN (16:30)
[2018-02-05] MEDS ORDERED: ONDANSETRON 4 MG/2 ML (SDV) Z0FRAN IV PRN (16:30)
[2018-02-05] MEDS ORDERED: VANCOMYCIN INJECTION 1,000 MG in NS (IVPB) 250 ML IV SCH (16:30)
[2018-02-05 16:33] LABS: BACTERIA,URINE LARGE /HPF; WBC,URINE 50-100 /HPF
--- NOTE | 2018-02-05 16:37 | History & Physical-Hospitalist ---
History of Present Illness HPI/Chief Complaint Pt is a 77yoCF with a PMH of HTN, CVA with residual deficits, and NIDDMII who presented to the ER with CC of decrease urine output and confusion. She is unable to provide me an history due to confusion. I am only able to get a limited history from her as he is distraught. He takes that 3-4 days ago her home health nurse noticed her urine output was low. At some point her mentation appeared altered from her baseline (though I am unable to ascertain what her baseline is) so they brought her to the ER for evaluation. In the ER she was found to be hypotensive and have diffuse pressure wounds on the dependent areas of her bottom. Per her daughters report she had a stroke around 20 years and has been bedridden for the past 10 years and rarely moves from her left side. Source: patient Date Seen 02/05/18 Time Seen by Provider: 16:20 Attending Physician PCP Jean-Claude Ocasio MD Referring Physician Date of Admission Home Medications & Allergies Home Medications Reviewed patient Home Medication Reconciliation performed by pharmacy medication reconciliations geoscience laboratory technician and/or nursing. Patients Allergies have been reviewed. Allergies Allergies Coded Allergies Penicillins (Verified Allergy, Unknown, Pt has received Cefazolin w/o issue, ) Past Qzkyjss-Tpkudg-Pdhckl Hx Past Med/Social Hx: Reviewed Nursing Past Med/Soc Hx, Reviewed and Corrections made Patient Social History Marrital Status: Employed/Student: unemployed Alcohol Use: Denies Use Recreational Drug Use: No Smoking Status: Unknown if Ever Smoked Recent Foreign Travel: No Contact w/other who traveled: No Recent Hopitalizations: No Recent Infectious Disease Expo: No Immunizations Up To Date Tetanus Booster (TDap): Unknown Pediatric: No Seasonal Allergies Seasonal Allergies: No Past Medical History Surgeries: Oophorectomy Cardiac: Atrial Fibrillation, Hypertension Neurological: Headaches /Migraines, Stroke, TIA Reproductive: No Sexually Transmitted Disease: No HIV/AIDS: No Genitourinary: Neurogenic Bladder, UTI-Chronic Gastrointestinal: Gall Bladder Disease Musculoskeletal: Arthritis Endocrine: Diabetes, Non-Insulin dep Psychosocial: Depression History of Blood Disorders: No Family History Reviewed Nursing Family Hx Alcoholism 03 FATHER FH: stomach cancer 03 MOTHER Review of Systems ROS-Unable to Obtain: due to altered mentation Constitutional: see HPI Physical Exam Physical Exam Vital Signs Vital Signs - First Documented 02/05/18 02/05/18 14:07 16:25 Temp 98.0 Pulse 140 Resp 22 B/P (MAP) 88/42 (57) Pulse Ox 95 O2 Delivery Nasal Cannula O2 Flow Rate 2.00 Capillary Refill : Less Than 3 Seconds General Appearance: Chronically ill, Mild Distress, Obese HEENT: PERRL/EOMI, No Scleral Icterus (L), No Scleral Icterus (R), Other (left eye with matting) Respiratory: Lungs Clear (though limited by body habitus), No Accessory Muscle Use, No Respiratory Distress Cardiovascular: No Murmur, Tachycardia Gastrointestinal: Normal Bowel Sounds, Non Tender, Soft Extremity: No Calf Tenderness, Swelling, Other (muscle atrophy of bilateral lower extremities) Neurologic/Psychiatric: Alert, Disoriented x3 Skin: Other (diffuse pressure injury and macerations of skin on neck, breasts, abdomen, arms, and legs, candidiasis noted under breast) Lymphatic: Other Results Results/Procedures Labs Laboratory Tests 02/05/18 14:09 Patient resulted labs reviewed. Imaging: Reviewed Imaging Films, Reviewed Imaging Report Imaging Date of Exam: 02/05/18 CHEST 1 VIEW, AP/PA ONLY INDICATION: Central line placement. COMPARISON STUDY: Chest from December 17. FINDINGS: Portable view of the chest is underpenetrated. A right jugular catheter has been placed with its tip in the mid superior vena cava. Cardiomegaly is present with some pulmonary congestion. IMPRESSION: 1. Central venous catheter is in the SVC. 2. Cardiomegaly is again identified with mild pulmonary congestion. Assessment/Plan Admission Diagnosis Severe Sepsis Admission Status: Inpatient Order (span 2 midnights) Reason for Inpatient Admission: hypotension, lactic acidosis, needs IV abx Critical Care Critically Ill Patient Diagnosis/Problems Diagnosis/Problems (1) Severe sepsis Status: Acute Assessment & Plan: Tachycardiac with leukocytosis noted UA consistent with UTI and skin wounds concerning for cellulitis Cultures sent in ER Lactic acidosis >2 and hypotensive on presentation so meets severe sepsis Continue 30cc/kg bolus Will start Cefepime and Vanc (2) Urinary tract infection Status: Acute Assessment & Plan: Continue Abx as above Qualifiers: Urinary tract infection type: catheter-associated UTI Indwelling urinary catheter type: indwelling urethral catheter Encounter type: initial encounter Qualified Codes: T83.511A - Infection and inflammatory reaction due to indwelling urethral catheter, initial encounter; N39.0 - Urinary tract infection, site not specified (3) Non-insulin dependent type 2 diabetes mellitus Status: Chronic Assessment & Plan: SSI (4) HTN (hypertension) Status: Acute Assessment & Plan: Hold home BP meds for hypotension Qualifiers: Hypertension type: essential hypertension Qualified Codes: I10 - Essential (primary) hypertension (5) Morbid obesity Status: Acute Assessment & Plan: Has been bedridden for ~10years per family report Will place PT/OT consult (6) Intertrigo Status: Acute Assessment & Plan: Nystatin powder (7) Atrial flutter Status: Chronic Assessment & Plan: History of atrial flutter Reviewing Cardiology notes she is to be on Eliquis for a CHADSVASC of 7 I do not see this on her medication list so am unsure why this was taken off Will consult cardiology Qualifiers: Atrial flutter type: typical Qualified Codes: I48.3 - Typical atrial flutter (8) Discharge planning issues Assessment & Plan: Has previously been advised of need to consider remote computer terminal operator care Patient is clearly not cared for at the level she needs given her skin findings and overall state Will consult for assistance Family has previously been resistant to this idea (9) Prophylactic measure Assessment & Plan: IVF per sepsis protocol NPO AKMRAN GROSS MD Feb 05, 2018 16:37
--- OUTSIDE RECORDS SUMMARY | 2018-02-05 16:54 | XMS REPORT | Continuity of Care Document ---
Author Author [facility] Organization [facility] Address Unknown Phone Unavailable Allergies Active Description Code Type Severity Reaction Onset Reported/Identified Relationship to Patient Clinical Status Yes Penicillins [id number] Drug Allergy Unknown N/A 05/01/2007 Medications There [...] MD R Ot Z91.19 PATIENT'S NONCOMPLIANCE W [facility] 06/01/2016 Ot 788.1 DYSURIA 06/01/2016 Ot 791.9 ABN URINE FINDINGS NEC 09/06/2016 CRISS CUMMINS APRN Ot E11.621 TYPE 2 DIABETES MELLITUS WITH FOOT ULCER 09/06/2016 CRISS CUMMINS APRN Ot E66.01 MORBID (SEVERE) OBESITY DUE TO EXCESS CA 09/06/2016 CRISS CUMMINS FIRE PATROL Ot I10 ESSENTIAL (PRIMARY) HYPERTENSION 09/06/2016 CRISS [...] SPECIF 09/06/2016 CRISS CUMMINS APRN Ot Z79.82 SENIOR CARE (CURRENT) USE OF ASPIRIN 09/06/2016 CRISS CUMMINS APRN Ot Z79.84 SENIOR CARE (CURRENT) USE OF ORAL HYPOGLYC 09/06/2016 CRISS CUMMINS APRN Ot Z79.899 OTHER KIESELGUHR REGENERATOR OPERATOR (CURRENT) DRUG THERAPY 09/07/2016 CRISS CUMMINS APRN Ot E11.621 TYPE 2 DIABETES MELLITUS WITH FOOT ULCER 09/07/2016 CRISS CUMMINS APRN Ot E66.01 MORBID (SEVERE) OBESITY DUE TO EXCESS CA 09/07/2016 CRISS CUMMINS FIRE PATROL Ot I10 ESSENTIAL (PRIMARY) HYPERTENSION 09/07/2016 CRISS [...] SPECIF 09/07/2016 CRISS CUMMINS APRN Ot Z79.82 KIESELGUHR REGENERATOR OPERATOR (CURRENT) USE OF ASPIRIN 09/07/2016 CRISS CUMMINS APRN Ot Z79.84 KIESELGUHR REGENERATOR OPERATOR (CURRENT) USE OF ORAL HYPOGLYC 09/07/2016 CRISS CUMMINS APRN Ot Z79.899 OTHER KIESELGUHR REGENERATOR OPERATOR (CURRENT) DRUG THERAPY 09/09/2016 CRISS CUMMINS APRN Ot E11.621 TYPE 2 DIABETES MELLITUS WITH FOOT ULCER 09/09/2016 CRISS CUMMINS APRN Ot E66.01 MORBID (SEVERE) OBESITY DUE TO EXCESS CA 09/09/2016 CRISS CUMMINS APRN Ot I10 ESSENTIAL (PRIMARY) HYPERTENSION 09/09/2016 CRISS CUMMINS APRN Ot L97.501 NON-PRS CHR ULCER OTH PRT UNSP FOOT LIMI 09/09/2016 CRISS CUMMINS FIRE PATROL Ot L97.511 NON-PRS CHRONIC ULCER OTH PRT R FOOT GOMEZ 09/09/2016 CRISS CUMMINS APRN Ot L97.521 NON-PRS CHRONIC ULCER OTH PRT L FOOT GOMEZ 09/09/2016 CRISS CUMMINS APRN Ot N39.0 URINARY TRACT INFECTION, SITE NOT SPECIF 09/09/2016 CRISS CUMMINS FIRE PATROL Ot Z79.82 KIESELGUHR REGENERATOR OPERATOR (CURRENT) USE OF ASPIRIN 09/09/2016 CRISS CUMMINS FIRE PATROL Ot Z79.84 SENIOR CARE (CURRENT) USE OF ORAL HYPOGLYC 09/09/2016 CRISS CUMMINS FIRE PATROL Ot Z79.899 OTHER SENIOR CARE (CURRENT) DRUG THERAPY 10/04/2016 SYLVESTER CHUNG MD [...] TOE(S) 10/04/2016 SYLVESTER CHUNG MD Ot Z79.82 KIESELGUHR REGENERATOR OPERATOR (CURRENT) USE OF ASPIRIN 10/04/2016 SYLVESTER CHUNG MD T Ot Z79.84 SENIOR CARE (CURRENT) USE OF ORAL HYPOGLYC 10/04/2016 SYLVESTER CHUNG MD Ot Z79.899 OTHER SENIOR CARE (CURRENT) DRUG THERAPY 10/05/2016 SYLVESTER CHUNG MD [...] TOE(S) 10/05/2016 SYLVESTER CHUNG MD Ot Z79.82 SENIOR CARE (CURRENT) USE OF ASPIRIN 10/05/2016 SYLVESTER CHUNG MD Ot Z79.84 SENIOR CARE (CURRENT) USE OF ORAL HYPOGLYC 10/05/2016 SYLVESTER CHUNG MD Ot Z79.899 OTHER KIESELGUHR REGENERATOR OPERATOR (CURRENT) DRUG THERAPY 12/01/2016 CRISS CUMMINS FIRE PATROL Ot E66.01 MORBID (SEVERE) OBESITY DUE TO EXCESS CA 12/01/2016 CRISS CUMMINS FIRE PATROL Ot J40 BRONCHITIS, NOT SPECIFIED ACUTE OR CH 12/01/2016 CRISS CUMMINS FIRE PATROL Ot M79.671 PAIN IN RIGHT FOOT 12/01/2016 CRISS CUMMINS FIRE PATROL Ot M79.672 PAIN IN LEFT FOOT 12/01/2016 CRISS CUMMINS FIRE PATROL Ot Z79.82 KIESELGUHR REGENERATOR OPERATOR (CURRENT) USE OF ASPIRIN 12/01/2016 CRISS CUMMINS FIRE PATROL Ot Z79.84 SENIOR CARE (CURRENT) USE OF ORAL HYPOGLYC 12/03/2016 CRISS CUMMINS APRN Ot E66.01 MORBID (SEVERE) OBESITY DUE TO EXCESS CA 12/03/2016 CRISS CUMMINS FIRE PATROL Ot J40 BRONCHITIS, NOT SPECIFIED ACUTE OR CH 12/03/2016 CRISS CUMMINS FIRE PATROL Ot M79.671 PAIN IN RIGHT FOOT 12/03/2016 CRISS CUMMINS FIRE PATROL Ot M79.672 PAIN IN LEFT FOOT 12/03/2016 CRISS CUMMINS FIRE PATROL Ot Z79.82 KIESELGUHR REGENERATOR OPERATOR (CURRENT) USE OF ASPIRIN 12/03/2016 CRISS CUMMINS FIRE PATROL Ot Z79.84 KIESELGUHR REGENERATOR OPERATOR (CURRENT) USE OF ORAL HYPOGLYC 12/05/2016 CRISS CUMMINS FIRE PATROL Ot E66.01 MORBID (SEVERE) OBESITY DUE TO EXCESS CA 12/05/2016 CRISS CUMMINS FIRE PATROL Ot J40 BRONCHITIS, NOT SPECIFIED ACUTE OR CH 12/05/2016 CRISS CUMMINS FIRE PATROL Ot M79.671 PAIN IN RIGHT FOOT 12/05/2016 CRISS CUMMINS FIRE PATROL Ot M79.672 PAIN IN LEFT FOOT 12/05/2016 CRISS CUMMINS FIRE PATROL Ot Z79.82 SENIOR CARE (CURRENT) USE OF ASPIRIN 12/05/2016 CRISS CUMMINS FIRE PATROL Ot Z79.84 SENIOR CARE (CURRENT) USE OF ORAL HYPOGLYC 12/07/2016 CRISS CUMMINS APRN Ot E66.01 MORBID (SEVERE) OBESITY DUE TO EXCESS CA 12/07/2016 CRISS CUMMINS FIRE PATROL Ot J40 BRONCHITIS, NOT SPECIFIED ACUTE OR CH 12/07/2016 CRISS CUMMINS FIRE PATROL Ot M79.671 PAIN IN RIGHT FOOT 12/07/2016 CRISS CUMMINS FIRE PATROL Ot M79.672 PAIN IN LEFT FOOT 12/07/2016 CRISS CUMMINS FIRE PATROL Ot Z79.82 SENIOR CARE (CURRENT) USE OF ASPIRIN 12/07/2016 CRISS CUMMINS APRN Ot Z79.84 SENIOR CARE (CURRENT) USE OF ORAL HYPOGLYC 12/17/2016 SYLVESTER [...] DEBILITY 12/17/2016 SYLVESTER CHUNG MD Ot Z79.82 SENIOR CARE (CURRENT) USE OF ASPIRIN 12/17/2016 SYLVESTER CHUNG MD Ot Z79.84 KIESELGUHR REGENERATOR OPERATOR (CURRENT) USE OF ORAL HYPOGLYC 12/17/2016 SYLVESTER CHUNG MD Ot Z79.899 OTHER KIESELGUHR REGENERATOR OPERATOR (CURRENT) DRUG THERAPY 12/19/2016 SYLVESTER CHUNG MD Ot E11.9 TYPE 2 DIABETES MELLITUS WITHOUT COMPLIC 12/19/2016 SYLVESTER CHUNG MD Ot E66.9 OBESITY, UNSPECIFIED 12/19/2016 SYLVESTER CHUNG MD Ot E83.42 HYPOMAGNESEMIA 12/19/2016 SYLVESTER CHUNG MD Ot I10 ESSENTIAL (PRIMARY) HYPERTENSION 12/19/2016 SYLVESTER CHUGN MD Ot I48.92 UNSPECIFIED ATRIAL FLUTTER 12/19/2016 SYLVESTER CHUNG MD Ot N39.0 URINARY TRACT INFECTION, SITE NOT SPECIF 12/19/2016 SYLVESTER CHUNG MD Ot R41.82 ALTERED MENTAL STATUS, UNSPECIFIED 12/19/2016 SYLVESTER CHUNG MD Ot R47.02 DYSPHASIA 12/19/2016 SYLVESTER CHUNG MD Ot R54 AGE-RELATED PHYSICAL DEBILITY 12/19/2016 SYLVESTER CHUNG MD Ot Z79.82 KIESELGUHR REGENERATOR OPERATOR (CURRENT) USE OF ASPIRIN 12/19/2016 SYLVESTER CHUNG MD Ot Z79.84 KIESELGUHR REGENERATOR OPERATOR (CURRENT) USE OF ORAL HYPOGLYC 12/19/2016 SYLVESTER CHUNG MD Ot Z79.899 OTHER KIESELGUHR REGENERATOR OPERATOR (CURRENT) DRUG THERAPY 12/19/2016 SYLVESTER CHUNG MD [...] DEBILITY 12/19/2016 SYLVESTER CHUNG MD, Ot Z79.82 SENIOR CARE (CURRENT) USE OF ASPIRIN 12/19/2016 SYLVESTER CHUNG MD Ot Z79.84 KIESELGUHR REGENERATOR OPERATOR (CURRENT) USE OF ORAL HYPOGLYC 12/19/2016 SYLVESTER CHUNG MD Ot Z79.899 OTHER SENIOR CARE (CURRENT) DRUG THERAPY 12/22/2016 SYLVESTER CHUNG MD [...] DEBILITY 12/22/2016 SYLVESTER CHUNG MD Ot Z79.82 SENIOR CARE (CURRENT) USE OF ASPIRIN 12/22/2016 SYLVESTER CHUNG MD Ot Z79.84 KIESELGUHR REGENERATOR OPERATOR (CURRENT) USE OF ORAL HYPOGLYC 12/22/2016 SYLVESTER CHUNG MD Ot Z79.899 OTHER SENIOR CARE (CURRENT) DRUG THERAPY 04/18/2017 ZEESHAN BARTH, DIANE Quiroz Ot N39.0 URINARY TRACT INFECTION, SITE NOT SPECIF Procedures There is no data. Results Test Result Range Gram stain microscopy - 09/06/16 17:10 GRAM STAIN RESULT FEW WBC'S, NO BACTERIA OBSERVED NRG Bacteria identification in wound by culture - 09/06/16 17:10 Bacteria identification in wound by culture [id number] NRG FREE TEXT EXTERNAL (T. RUBRUM COMPLEX; [...] culture - 09/06/16 17:30 Bacterial urine culture [id number] NRG COLONY COUNT >100,000/ML NRG FTX;REPORTABLE SENSITIVITY [...] Isolated [facility] Bacterial blood culture [id number] [facility] Complete blood count (CBC) [...] culture - 12/17/16 12:15 Bacterial urine culture [id number] NRG COLONY COUNT 10,000/ML - 100,000/ML NRG [...] culture - 03/28/17 12:50 Bacterial urine culture [id number] NRG COLONY COUNT >100,000/ML NRG FTX;REPORTABLE SENSITIVITY [...] test by minimum inhibitory concentration 2 NRG Complete blood count (CBC) with automated white blood cell (WBC) differential - 02/05/18 14:09 Blood leukocytes automated count (number/volume) 15.8 10*3/uL 4.3-11.0 Blood erythrocytes automated count (number/volume) 4.94 10*6/uL 4.35-5.85 Venous blood hemoglobin measurement (mass/volume) 14.7 g/dL 11.5-16.0 Blood hematocrit (volume fraction) 45 % 35-52 Automated erythrocyte mean corpuscular volume 91 [foz_us] 80-99 Automated erythrocyte mean corpuscular hemoglobin (mass per erythrocyte) 30 pg 25-34 Automated erythrocyte mean corpuscular hemoglobin concentration measurement ( mass/volume) 33 g/dL 32-36 Automated erythrocyte distribution width ratio 15.2 % 10.0-14.5 Automated blood platelet count (count/volume) 528 10*3/uL 130-400 Automated blood platelet mean volume measurement 9.5 [foz_us] 7.4-10.4 Automated blood neutrophils/100 leukocytes 79 % 42-75 Automated blood lymphocytes/100 leukocytes 13 % 12-44 Blood monocytes/100 leukocytes 6 % 0-12 Automated blood eosinophils/100 leukocytes 2 % 0-10 Automated blood basophils/100 leukocytes 0 % 0-10 Blood neutrophils automated count (number/volume) 12.5 10*3 1.8-7.8 Blood lymphocytes automated count (number/volume) 2.0 10*3 1.0-4.0 Blood monocytes automated count (number/volume) 1.0 10*3 0.0-1.0 Automated eosinophil count 0.3 10*3/uL 0.0-0.3 Automated blood basophil count (count/volume) 0.1 10*3/uL 0.0-0.1 Comprehensive metabolic panel - 02/05/18 14:09 Serum or plasma sodium measurement (moles/volume) 137 mmol/L 135-145 Serum or plasma potassium measurement (moles/volume) 5.1 mmol/L 3.6-5.0 Serum or plasma chloride measurement (moles/volume) 105 mmol/L 98-107 Carbon dioxide 19 mmol/L 21-32 Serum or plasma anion gap determination (moles/volume) 13 mmol/L 5-14 Serum or plasma urea nitrogen measurement (mass/volume) 35 mg/dL 7-18 Serum or plasma creatinine measurement (mass/volume) 1.03 mg/dL 0.60-1.30 Serum or plasma urea nitrogen/creatinine mass ratio 34 NRG Serum or plasma creatinine measurement with calculation of estimated glomerular filtration rate 52 NRG Serum or plasma glucose measurement (mass/volume) 184 mg/dL 70-105 Serum or plasma calcium measurement (mass/volume) 8.8 mg/dL 8.5-10.1 Serum or plasma total bilirubin measurement (mass/volume) 0.5 mg/dL 0.1-1.0 Serum or plasma alkaline phosphatase measurement (enzymatic activity/volume) 90 U/L 40-136 Serum or plasma aspartate aminotransferase measurement (enzymatic activity/ volume) 15 U/L 5-34 Serum or plasma alanine aminotransferase measurement (enzymatic activity/volume ) 11 U/L 0-55 Serum or plasma protein measurement (mass/volume) 6.6 g/dL 6.4-8.2 Serum or plasma albumin measurement (mass/volume) 2.8 g/dL 3.2-4.5 Blood manual differential performed detection - 02/05/18 14:09 Blood monocytes/100 leukocytes 6 % NRG Manual blood segmented neutrophils/100 leukocytes 77 % NRG Blood band neutrophils/100 leukocytes 5 % NRG Manual blood lymphocytes/100 leukocytes 10 % NRG Manual eosinophils/100 leukocytes in nose 2 % NRG Manual blood basophils/100 leukocytes 0 % NRG Blood anisocytosis detection by light microscopy SLIGHT NRG Complete urinalysis with reflex to culture - 02/05/18 14:29 Urine color determination YELLOW NRG Urine clarity determination VERY CLOUDY NRG Urine pH measurement by test strip 8 5-9 Specific gravity of urine by test strip 1.010 1.016- 1.022 Urine protein assay by test strip, semi-quantitative 3+ NEGATIVE Urine glucose detection by automated test strip NEGATIVE NEGATIVE Erythrocytes detection in urine sediment by light microscopy 4+ NEGATIVE Urine ketones detection by automated test [...] urine sediment by light microscopy LARGE NRG Crystals detection in urine sediment by light microscopy NONE NRG Casts detection in urine sediment by light microscopy NONE NRG Mucus detection in urine sediment by light microscopy NEGATIVE NRG Complete urinalysis with reflex to culture YES NRG Encounters ACCT No. Visit Date/Time Discharge Status Pt. Type Provider Facility Loc./Unit Complaint [id number] 10/16/2017 15:36:00 10/16/2017 23:59:59 CLS Preadmit DIANE BYERS MD [facility] UTI [id number] 03/28/2017 12:50:00 03/28/2017 23:59:59 CLS Outpatient DIANE BYERS MD [facility] URINARY INCONTINANCE, DM, HTN, OBESITY [id number] 12/17/2016 08:39:00 12/17/2016 16:15:00 DIS Emergency SYLVESTER CHUNG MD [facility] ER STROKE [id number] 12/01/2016 15:34:00 12/01/2016 17:20:00 DIS Emergency CRISS CUMIMNS APRN [facility] ER BILAT FOOT PAIN [id number] 10/04/2016 14:39:00 10/04/2016 23:59:59 CLS Emergency SYLVESTER CHUNG MD [facility] ER TOE PAIN [id number] 09/06/2016 17:08:00 09/06/2016 18:38:00 DIS Emergency CRISS CUMMINS APRN [facility] ER ISSUES WITH TOES [id number] 03/19/2016 11:15:00 03/22/2016 12:35:00 DIS Inpatient DIANE BEYRS MD [facility] [address] UTI;NAUSEA/VOMITING; HEADACHE;MORBID OBESITY;HTN; [id number] 09/21/2015 11:22:00 09/23/2015 12:25:00 DIS Inpatient DIANE BYERS MD [facility] [address] UTI DEHYDRATION [id number] 02/18/2014 10:56:00 02/26/2014 15:20:00 DIS Inpatient DIANE BYERS MD [facility] [address] ABD PAIN/UTI [id number] 02/07/2014 21:25:00 02/16/2014 11:30:00 DIS Inpatient DIANE BYERS MD [facility] [address] ACUTE PYELONEPHRITIS [id number] 04/15/2013 16:10:00 04/17/2013 11:19:00 DIS Inpatient ZEESHAN BARTH, DIANE Quiroz [facility] 4TH SEVERE CELLULITIS [id number] 02/05/2018 14:55:00 Document Registration [id number] 08/31/2011 13:45:00 Document Registration [id number] 08/13/2011 14:27:00 Document Registration
[2018-02-05] MEDS ORDERED: ACETAMINOPHEN 325 MG TABLET/CAPLET (TYLENOL) PO PRN (17:15)
[2018-02-05] MEDS ORDERED: VANCOMYCIN 2,500 MG/NS 500 ML IVPB IV NR ×2 (17:30)
--- NOTE | 2018-02-05 17:32 | Diagnostic Imaging Report ---
INDICATION: Central line placement. COMPARISON STUDY: Chest from December 17. FINDINGS: Portable view of the chest is underpenetrated. A right jugular catheter has been placed with its tip in the mid superior vena cava. Cardiomegaly is present with some pulmonary congestion. IMPRESSION: 1. Central venous catheter is in the SVC. 2. Cardiomegaly is again identified with mild pulmonary congestion. Dictated by: Dictated on workstation # [id number]
[2018-02-05] MEDS: NS IV 1000 ML 1,000 ML IV SCH ×2 (18:44→23:11)
[2018-02-05] MEDS: CEFEPIME INJECTION 2,000 MG in NS (IVPB) 100 ML IV SCH (18:45)
[2018-02-05 20:00] VITALS: BP 123/65
[2018-02-05] MEDS: inSUlin ASPART (NovoLOG) 1 UNIT/0.01 ML (CHARGE PER UNIT) SC SCH (21:04)
[2018-02-05] MEDS: MICONAZOLE 2% POWDER (DESENEX AF) 90 GM TOP SCH (21:07)
[2018-02-06] VITALS: BP 141/82
[2018-02-06] MEDS: NS IV 1000 ML 1,000 ML IV SCH ×5 (03:48→20:45)
[2018-02-06 04:00] VITALS: BP 95/52
[2018-02-06] MEDS: CEFEPIME INJECTION 2,000 MG in NS (IVPB) 100 ML IV SCH ×2 (04:27→15:55)
[2018-02-06] MEDS: inSUlin ASPART (NovoLOG) 1 UNIT/0.01 ML (CHARGE PER UNIT) SC SCH ×4 (05:28→20:34)
[2018-02-06 06:16] LABS: BASOPHILS % (AUTO) 0 % (0-10); EOSINOPHILS # (AUTO) 0.3 10^3/uL (0.0-0.3); EOSINOPHILS % (AUTO) 2 % (0-10); HEMATOCRIT 41 % (35-52); HEMOGLOBIN 13.4 G/DL (11.5-16.0); LYMPHOCYTES # (AUTO) 1.7 X 10^3 (1.0-4.0); LYMPHOCYTES % (AUTO) 10 % (12-44); MEAN CORPUSCULAR HEMOGLOBIN 29 PG (25-34); MEAN CORPUSCULAR HGB CONC 33 G/DL (32-36); MEAN CORPUSCULAR VOLUME 90 FL (80-99); MEAN PLATELET VOLUME 9.4 FL (7.4-10.4); MONOCYTES # (AUTO) 1.2 X 10^3 (0.0-1.0); MONOCYTES % (AUTO) 7 % (0-12); NEUTROPHILS # (AUTO) 13.3 X 10^3 (1.8-7.8); NEUTROPHILS % (AUTO) 81 % (42-75); PLATELET COUNT 436 10^3/uL (130-400); RED BLOOD COUNT 4.58 10^6/uL (4.35-5.85); RED CELL DISTRIBUTION WIDTH 14.9 % (10.0-14.5); WHITE BLOOD COUNT 16.5 10^3/uL (4.3-11.0)
[2018-02-06 06:36] LABS: ALANINE AMINOTRANSFERASE 10 U/L (0-55); ALBUMIN 2.4 GM/DL (3.2-4.5); ALKALINE PHOSPHATASE 77 U/L (40-136); BILIRUBIN,TOTAL 0.6 MG/DL (0.1-1.0); BUN/CREATININE RATIO 39; CARBON DIOXIDE 19 MMOL/L (21-32); CHLORIDE 110 MMOL/L (98-107); CREATININE SERUM 0.82 MG/DL (0.60-1.30); GFR ESTIMATED > 60; GLUCOSE 119 MG/DL (70-105); POTASSIUM 3.4 MMOL/L (3.6-5.0); SODIUM 141 MMOL/L (135-145); TOTAL PROTEIN 5.5 GM/DL (6.4-8.2)
[2018-02-06 07:46] VITALS: BP 123/74
--- NOTE | 2018-02-06 09:28 | Physical Therapy Progress Note ---
Therapy Progress Note Per report, patient has been bed bound x 10 yrs at home with family. Upon entering the room, it is noted patient has bilateral LE contractures, torso contractures to right and extreme skin break down. PT attempted to perform bilateral LE ROM, however, patient yelled and cried in pain. Dr. Herrera notified. No PT indicated at this time. ([id number]) 1 visit OLI RICKS PT Feb 06, 2018 09:28
[2018-02-06] MEDS ORDERED: FURO20TA4 PO (10:08)
[2018-02-06] MEDS ORDERED: METF-478 PO (10:08)
[2018-02-06] MEDS ORDERED: ACET325T38 PO (10:13)
[2018-02-06] MEDS ORDERED: BABY TOP (10:13)
--- NOTE | 2018-02-06 10:17 | Progress Note-Hospitalist ---
Subjective HPI/CC On Admission Date Seen by Provider: Feb 06, 2018 Time Seen by Provider: 10:10 Pt is a 77yoCF with a PMH of HTN, CVA with residual deficits, and NIDDMII who presented to the ER with CC of decrease urine output and confusion and was admitted for severe sepsis. Subjective/Events-last exam Pt is minimally verbal but alert. She stated "no" to most of my questions but I am unsure if this is accurate. Focused Exam Evaluation Lactate Level Laboratory Tests 02/05/18 17:08: Lactic Acid Level 2.14*H 02/05/18 19:10: Lactic Acid Level 2.61*H Objective Exam Vital Signs Vital Signs Date Time Temp Pulse Resp B/P (MAP) Pulse Ox O2 Delivery O2 Flow Rate FiO2 02/05/18 14:07 98.0 140 22 88/42 (57) 95 Nasal Cannula 02/05/18 16:25 2.00 Capillary Refill : Less Than 3 Seconds Vital Signs Date Time Temp Pulse Resp B/P (MAP) Pulse Ox O2 Delivery O2 Flow Rate FiO2 02/06/18 08:25 3.00 02/06/18 07:46 96.9 94 24 123/74 (90) 98 Nasal Cannula 3.00 02/06/18 04:00 96.5 72 18 95/52 (66) 99 Nasal Cannula 3.00 02/06/18 00:00 96.9 89 18 141/82 (101) 96 Nasal Cannula 3.00 02/05/18 21:00 Nasal Cannula 2.00 02/05/18 20:36 2.00 02/05/18 20:00 96.5 126 18 123/65 (84) 100 Nasal Cannula 3.00 02/05/18 18:22 105 18 109/75 99 Nasal Cannula 2.00 02/05/18 17:30 97.1 82 16 94 Nasal Cannula 3.00 02/05/18 16:25 99 20 104/75 (85) 98 Nasal Cannula 2.00 02/05/18 15:00 100 18 97/56 (70) 98 Nasal Cannula 02/05/18 14:07 98.0 140 22 88/42 (57) 95 Nasal Cannula I & O 02/06/18 07:00 Intake Total 3625 ml Output Total 475 ml Balance 3150 ml General Appearance: No Apparent Distress, WD/WN Respiratory: Lungs Clear (limited by habitus) Cardiovascular: Regular Rate, Rhythm, No Murmur Gastrointestinal: Normal Bowel Sounds, Non Tender, Soft Extremity: Normal Capillary Refill, No Calf Tenderness, No Pedal Edema Neurologic/Psychiatric: Alert, Disoriented x3 Skin: Other (diffuse erythema on nearly all dependent areas with maceration and pressure injury) Results/Procedures Lab Laboratory Tests 02/05/18 14:09 02/06/18 06:00 Patient resulted labs reviewed. Imaging: Reviewed Imaging Films, Reviewed Imaging Report Assessment/Plan Assessment and Plan Assess & Plan/Chief Complaint Severe Sepsis Critical Care Critical Care: Critically Ill Patient Diagnosis/Problems Diagnosis/Problems (1) Severe sepsis Status: Acute Assessment & Plan: UA consistent with UTI and skin wounds concerning for cellulitis Blood Cultures sent in ER- pending Urine culture growing GNR Cont Cefepime and Vanc (2) Urinary tract infection Status: Acute Assessment & Plan: Continue Abx as above and await cultures and sensitivities Qualifiers: Urinary tract infection type: catheter-associated UTI Indwelling urinary catheter type: indwelling urethral catheter Encounter type: initial encounter Qualified Codes: T83.511A - Infection and inflammatory reaction due to indwelling urethral catheter, initial encounter; N39.0 - Urinary tract infection, site not specified (3) Non-insulin dependent type 2 diabetes mellitus Status: Chronic Assessment & Plan: SSI (4) HTN (hypertension) Status: Acute Assessment & Plan: Hold home BP meds for hypotension Qualifiers: Hypertension type: essential hypertension Qualified Codes: I10 - Essential (primary) hypertension (5) Morbid obesity Status: Acute Assessment & Plan: Has been bedridden for ~10years per family report PT/OT (6) Intertrigo Status: Acute Assessment & Plan: Nystatin powder (7) Atrial flutter Status: Chronic Assessment & Plan: History of atrial flutter Reviewing Cardiology notes she is to be on Eliquis for a CHADSVASC of 7 I do not see this on her medication list so am unsure why this was taken off Will consult cardiology Qualifiers: Atrial flutter type: typical Qualified Codes: I48.3 - Typical atrial flutter (8) Discharge planning issues Assessment & Plan: Has previously been advised of need to consider residential care Patient is clearly not cared for at the level she needs given her skin findings and overall state Will consult for assistance Family has previously been resistant to this idea Family not at bedside this AM during rounds- plan to discuss this when they are available (9) Prophylactic measure Assessment & Plan: IVF @125ml/hr NPO until more alert Lovenox Clinical Quality Measures DVT/VTE Risk/Contraindication: Risk Factor Score Per Nursin RFS Level Per Nursing on Admit: 4+=Very High KAMRAN GROSS MD Feb 06, 2018 10:17 am
[2018-02-06] MEDS: MICONAZOLE 2% POWDER (DESENEX AF) 90 GM TOP SCH ×2 (11:13→20:35)
[2018-02-06] MEDS: fentaNYL INJECTION 100 MCG/2 ML AMP IVP PRN ×2 (11:14→13:43)
[2018-02-06] MEDS: ENOXAPARIN 40 MG/0.4 ML (LOVENOX) SYR SC SCH (11:47)
[2018-02-06 12:00] VITALS: BP 127/74
--- NOTE | 2018-02-06 13:37 | Consultation-Cardiology ---
HPI-Cardiology Cardiology Consultation Date of Consultation 02/06/18 Date of Admission Time Seen by Provider: 13:31 Indication: Atrial fibrillation HPI 77 years old lady with history of atrial fibrillation, history of CVA, admitted for sepsis and urinary tract infection. Poor hygiene. Patient has been bedridden for the past 7-8 years, generalized weakness, arthritic and joint pain in addition to morbid obesity. 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 She was brought to the emergency room due to fatigue and lethargy in addition to hypotension. Diagnosed with sepsis and was treated. According to the she looks better today, still lethargic, did not have any acute complaints at this time. Denied any chest pain. Having lower extremity pain. Home Medications & Allergies Allergies: Coded Allergies: Penicillins (Verified Allergy, Unknown, Pt has received Cefazolin w/o issue, 02/05/18) Home Medication List Reviewed: Yes ADJ-Vtksdm-Vxzasu Hx Patient Social History Marital Status: Employed/Student: unemployed Alcohol Use: Denies Use Recreational Drug Use: No Smoking Status: Unknown if Ever Smoked Former smoker/When Quit: Sep 21, 2002 Recent Foreign Travel: No Recent Infectious Disease Expo: No Recent Hopitalizations: No Physical Abuse Screen: No Sexual Abuse: No Immunizations Up To Date Tetanus Booster (TDap): Unknown Past Medical History Past medical history as discussed below Family Medical History Family History: Alcoholism 03 FATHER FH: stomach cancer 03 MOTHER Constitutional: see HPI, malaise, weakness EENTM: see HPI, no symptoms reported Respiratory: see HPI, orthopnea Cardiovascular: see HPI, edema, palpitations Gastrointestinal: see HPI Genitourinary: see HPI Musculoskeletal: see HPI, gout, joint pain, muscle weakness Skin: see HPI, other (Multiple skin lesions) Psychiatric/Neurological: See HPI Reviewed Test Results Reviewed Test Results Lab Laboratory Tests Test 02/05/18 14:09 02/05/18 14:29 02/05/18 17:08 02/05/18 19:10 Range/Units White Blood Count 15.8 H 4.3-11.0 10^3/uL Red Blood Count 4.94 4.35-5.85 10^6/uL Hemoglobin 14.7 11.5-16.0 G/DL Hematocrit 45 35-52 % Mean Corpuscular Volume 91 80-99 FL Mean Corpuscular Hemoglobin 30 25-34 PG Mean Corpuscular Hemoglobin Concent 33 32-36 G/DL Red Cell Distribution Width 15.2 H 10.0-14.5 % Platelet Count 528 H 130-400 10^3/uL Mean Platelet Volume 9.5 7.4-10.4 FL Neutrophils (%) (Auto) 79 H 42-75 % Lymphocytes (%) (Auto) 13 12-44 % Monocytes (%) (Auto) 6 0-12 % Eosinophils (%) (Auto) 2 0-10 % Basophils (%) (Auto) 0 0-10 % Neutrophils # (Auto) 12.5 H 1.8-7.8 X 10^3 Lymphocytes # (Auto) 2.0 1.0-4.0 X 10^3 Monocytes # (Auto) 1.0 0.0-1.0 X 10^3 Eosinophils # (Auto) 0.3 0.0-0.3 10^3/uL Basophils # (Auto) 0.1 0.0-0.1 10^3/uL Neutrophils % (Manual) 77 % Lymphocytes % (Manual) 10 % Monocytes % (Manual) 6 % Eosinophils % (Manual) 2 % Basophils % (Manual) 0 % Metamyelocytes % % Band Neutrophils 5 % Anisocytosis SLIGHT Sodium Level 137 135-145 MMOL/L Potassium Level 5.1 H 3.6-5.0 MMOL/L Chloride Level 105 98-107 MMOL/L Carbon Dioxide Level 19 L 21-32 MMOL/L Anion Gap 13 5-14 MMOL/L Blood Urea Nitrogen 35 H 7-18 MG/DL Creatinine 1.03 0.60-1.30 MG/DL Estimat Glomerular Filtration Rate 52 BUN/Creatinine Ratio 34 Glucose Level 184 H 70-105 MG/DL Calcium Level 8.8 8.5-10.1 MG/DL Total Bilirubin 0.5 0.1-1.0 MG/DL Aspartate Amino Transf (AST/SGOT) 15 5-34 U/L Alanine Aminotransferase (ALT/SGPT) 11 0-55 U/L Alkaline Phosphatase 90 40-136 U/L Total Protein 6.6 6.4-8.2 GM/DL Albumin 2.8 L 3.2-4.5 GM/DL Urine Color YELLOW Urine Clarity VERY CLOUDY H Urine pH 8 5-9 Urine Specific [place] 1.010 L 1.016-1.022 Urine Protein 3+ H NEGATIVE Urine Glucose (UA) NEGATIVE NEGATIVE Urine Ketones NEGATIVE NEGATIVE Urine Nitrite NEGATIVE NEGATIVE Urine Bilirubin NEGATIVE NEGATIVE Urine Urobilinogen 1 NORMAL MG/DL Urine Leukocyte Esterase 3+ H NEGATIVE Urine RBC (Auto) 4+ H NEGATIVE Urine RBC 10-25 H /HPF Urine WBC 50-100 H /HPF Urine Crystals NONE /LPF Urine Bacteria LARGE H /HPF Urine Casts NONE /LPF Urine Mucus NEGATIVE /LPF Urine Culture Indicated YES Lactic Acid Level 2.14 *H 2.61 *H 0.50-2.00 MMOL/L Test 02/05/18 21:01 02/06/18 00:20 02/06/18 05:20 02/06/18 06:00 Range/Units Glucometer 167 H 120 H 109 70-110 MG/DL White Blood Count 16.5 H 4.3-11.0 10^3/uL Red Blood Count 4.58 4.35-5.85 10^6/uL Hemoglobin 13.4 11.5-16.0 G/DL Hematocrit 41 35-52 % Mean Corpuscular Volume 90 80-99 FL Mean Corpuscular Hemoglobin 29 25-34 PG Mean Corpuscular Hemoglobin Concent 33 32-36 G/DL Red Cell Distribution Width 14.9 H 10.0-14.5 % Platelet Count 436 H 130-400 10^3/uL Mean Platelet Volume 9.4 7.4-10.4 FL Neutrophils (%) (Auto) 81 H 42-75 % Lymphocytes (%) (Auto) 10 L 12-44 % Monocytes (%) (Auto) 7 0-12 % Eosinophils (%) (Auto) 2 0-10 % Basophils (%) (Auto) 0 0-10 % Neutrophils # (Auto) 13.3 H 1.8-7.8 X 10^3 Lymphocytes # (Auto) 1.7 1.0-4.0 X 10^3 Monocytes # (Auto) 1.2 H 0.0-1.0 X 10^3 Eosinophils # (Auto) 0.3 0.0-0.3 10^3/uL Basophils # (Auto) 0.0 0.0-0.1 10^3/uL Sodium Level 141 135-145 MMOL/L Potassium Level 3.4 L 3.6-5.0 MMOL/L Chloride Level 110 H 98-107 MMOL/L Carbon Dioxide Level 19 L 21-32 MMOL/L Anion Gap 12 5-14 MMOL/L Blood Urea Nitrogen 32 H 7-18 MG/DL Creatinine 0.82 0.60-1.30 MG/DL Estimat Glomerular Filtration Rate > 60 BUN/Creatinine Ratio 39 Glucose Level 119 H 70-105 MG/DL Calcium Level 8.0 L 8.5-10.1 MG/DL Total Bilirubin 0.6 0.1-1.0 MG/DL Aspartate Amino Transf (AST/SGOT) 14 5-34 U/L Alanine Aminotransferase (ALT/SGPT) 10 0-55 U/L Alkaline Phosphatase 77 40-136 U/L Total Protein 5.5 L 6.4-8.2 GM/DL Albumin 2.4 L 3.2-4.5 GM/DL Test 02/06/18 11:47 Range/Units Glucometer 109 70-110 MG/DL Physical Exam Vital Signs Vital Signs - First Documented 02/05/18 02/05/18 14:07 16:25 Temp 98.0 Pulse 140 Resp 22 B/P (MAP) 88/42 (57) Pulse Ox 95 O2 Delivery Nasal Cannula O2 Flow Rate 2.00 Capillary Refill : Less Than 3 Seconds General Appearance: WD/WN, Mild Distress Eyes: Bilateral Eye Normal Inspection, Bilateral Eye PERRL, Bilateral Eye EOMI HEENT: PERRL/EOMI, TMs Normal, Normal ENT Inspection, Pharynx Normal Neck: Normal Inspection, Supple, Carotid Bruit Respiratory: Chest Non Tender, Crackles, Decreased Breath Sounds Cardiovascular: No JVD, Normal Peripheral Pulses, Systolic Murmur, Gallop/S3 Gastrointestinal: Normal Bowel Sounds, Non Tender, Soft Extremity: Calf Tenderness, Pedal Edema Neurologic/Psychiatric: Alert, Motor Weakness Skin: Damp, Erythema, Mottled, Rash Lymphatic: No Adenopathy A/P-Cardiology Admission Diagnosis Sepsis Urinary tract infection Hypotension Paroxysmal atrial fibrillation Assessment/Plan Sepsis, urinary tract infection, hypotension, received IV fluid and antibiotic, managed by primary care physician, continue to monitor History of paroxysmal atrial fibrillation of unknown duration. Rate is controlled. Not taking any medication at this time. [id number] score is 7, yearly risk of stroke without oral anticoagulation is 9.6 percent, not taking oral anticoagulation, recommended the use of Eliquis, has been on it in the past. Hypotension, history of hypertension in the past. Not taking any medication for blood pressure at this time. Questionable history of TIA, patient is reporting history of TIA in the remote past. continue to monitor Diabetes mellitus, followed and managed by primary care physician Morbid obesity, immobility due to obesity Clinical Quality Measures DVT/VTE Risk/Contraindication: Risk Factor Score Per Nursin RFS Level Per Nursing on Admit: 4+=Very High RON MITCHELL MD Feb 06, 2018 13:36
[2018-02-06] MEDS: VANCOMYCIN 2000 MG/NS 500 ML IVPB IV SCH ×2 (15:55)
--- NOTE | 2018-02-06 16:10 | Consultation ---
History of Present Illness History of Present Illness Patient Consulted On(brad/time) 02/06/18 17:05 Date Seen by Provider: Feb 05, 2018 Time Seen by Provider: 17:00 Reason for Visit: Atrial fibrillation History of Present Illness Consult requested by Milton Dill for sepsis hypotension and need for central line access. Patient is a 77-year-old female who was brought here by EMS with recent decreased urine output and confusion. Patient has history of CVA and is bedridden. Patient is alert but not able to provide any history. The patient has poor venous access and is needing central line placement. This is artery been attempted in the emergency department and was unsuccessful therefore I was asked to assist in the care of the patient. Patient family is at bedside and they understand the need for central line access. Allergies and Home Medications Allergies Coded Allergies: Penicillins (Verified Allergy, Unknown, Pt has received Cefazolin w/o issue, 02/05/18) Home Medications Acetaminophen 325 Mg Tablet, 325 MG PO Q4H PRN for PAIN-MILD, (Reported) Enalapril Maleate 20 Mg Tablet, 20 MG PO DAILY, (Reported) Furosemide 20 Mg Tablet, 20 MG PO DAILY, (Reported) Glipizide 10 Mg Tablet, 10 MG PO DAILY, (Reported) Metformin HCl 500 Mg Tab.er.24, 1,000 MG PO BID, (Reported) TAKES 2 (500MG) TABLETS [Baby Lotion] , TOP QID, (Reported) Patient Home Medication List Home Medication List Reviewed: Yes Past Bxtfeza-Ixqvrw-Fibfgv Hx Patient Social History Alcohol Use: Denies Use Recreational Drug Use: No Smoking Status: Unknown if Ever Smoked Recent Foreign Travel: No Contact w/Someone Who Travel: No Recent Infectious Disease Expo: No Recent Hopitalizations: No Physical Abuse Screen: No Sexual Abuse: No Immunizations Up To Date Tetanus Booster (TDap): Unknown PED Vaccines UTD: No Seasonal Allergies Seasonal Allergies: No Surgeries History of Surgeries: Yes (OVARIAN CYST, FATTY TUMOR REMOVAL LUE) Surgeries: Oophorectomy Respiratory History of Respiratory Disorde: No Cardiovascular History of Cardiac Disorders: Yes (NEW ONSET 03/19/16) Cardiac Disorders: Atrial Fibrillation, Hypertension Neurological History of Neurological Disord: Yes (TIA 2010) Neurological Disorders: Headaches /Migraines, Stroke, TIA Reproductive System Hx Reproductive Disorders: No Sexually Transmitted Disease: No HIV/AIDS: No Genitourinary Genitourinary Disorders: Neurogenic Bladder, UTI-Chronic Gastrointestinal History of Gastrointestinal Di: Yes Gastrointestinal Disorders: Gall Bladder Disease Musculoskeletal History of Musculoskeletal Dis: Yes Musculoskeletal Disorders: Arthritis Endocrine History of Endocrine Disorders: Yes (MORBID OBESITY) Endocrine Disorders: Diabetes, Non-Insulin dep Cancer History of Cancer: No Psychosocial History of Psychiatric Problem: Yes Behavioral Health Disorders: Depression Integumentary History of Skin or Integumenta: No (cellulitis, DRY SKIN) Blood Transfusions History of Blood Disorders: No Family Medical History Significant Family History: No Pertinent Family Hx Family Medial History: Alcoholism 03 FATHER FH: stomach cancer 03 MOTHER Review of Systems-General ROS-Unable to Obtain: Unable to obtain secondary to patient condition. Physical Exam-General Problems Physical Exam Vital Signs Vital Signs - First Documented 02/05/18 02/05/18 14:07 16:25 Temp 98.0 Pulse 140 Resp 22 B/P (MAP) 88/42 (57) Pulse Ox 95 O2 Delivery Nasal Cannula O2 Flow Rate 2.00 Capillary Refill : Less Than 3 Seconds General Appearance: mild distress (Confused) HEENT: PERRL/EOMI Neck: supple Respiratory: no respiratory distress, no accessory muscle use Cardiovascular: regular rate, rhythm Gastrointestinal: soft Rectal: deferred Back: other (moans with movement) Extremities: inflammation Neurologic/Psychiatric: alert, No oriented x 3 Skin: other (Erythematous over a large portion of body with ulcerations) Lymphatic: no adenopathy Data Review Labs Laboratory Tests 02/05/18 17:08: Lactic Acid Level 2.14*H 02/05/18 19:10: Lactic Acid Level 2.61*H 02/05/18 21:01: Glucometer 167H 02/06/18 00:20: Glucometer 120H 02/06/18 05:20: Glucometer 109 02/06/18 06:00: White Blood Count 16.5H, Red Blood Count 4.58, Hemoglobin 13.4, Hematocrit 41, Mean Corpuscular Volume 90, Mean Corpuscular Hemoglobin 29, Mean Corpuscular Hemoglobin Concent 33, Red Cell Distribution Width 14.9H, Platelet Count 436H, Mean Platelet Volume 9.4, Neutrophils (%) (Auto) 81H, Lymphocytes (%) (Auto) 10L , Monocytes (%) (Auto) 7, Eosinophils (%) (Auto) 2, Basophils (%) (Auto) 0, Neutrophils # (Auto) 13.3H, Lymphocytes # (Auto) 1.7, Monocytes # (Auto) 1.2H, Eosinophils # (Auto) 0.3, Basophils # (Auto) 0.0, Sodium Level 141, Potassium Level 3.4L, Chloride Level 110H, Carbon Dioxide Level 19L, Anion Gap 12, Blood Urea Nitrogen 32H, Creatinine 0.82, Estimat Glomerular Filtration Rate > 60, BUN /Creatinine Ratio 39, Glucose Level 119H, Calcium Level 8.0L, Total Bilirubin 0.6, Aspartate Amino Transf (AST/SGOT) 14, Alanine Aminotransferase (ALT/SGPT) 10, Alkaline Phosphatase 77, Total Protein 5.5L, Albumin 2.4L 02/06/18 11:47: Glucometer 109 Microbiology 02/05/18 Urine Culture - Preliminary, Resulted Gram Negative Kranthi Gram Negative Kranthi#2 Assessment/Plan Assessment/Plan Assessment/Plan Patient is 77-year-old female with history of CVA and bedridden. Patient with morbid obesity and poor venous access, sepsis, hypotension, UTI A previous attempt at a right internal jugular vein was attempted by emergency department. I was asked to try to obtain central venous access. Patient family was discuss risk and benefits and they understand and wish to proceed with procedure. Will place central venous catheter under ultrasound guidance. Medical management Clinical Quality Measures DVT/VTE Risk/Contraindication: Risk Factor Score Per Nursin RFS Level Per Nursing on Admit: 4+=Very High MARGIE ALONSO DO Feb 06, 2018 16:10
--- NOTE | 2018-02-06 16:27 | Occ Therapy Progress Note ---
Therapy Progress Note 1615 Talked with family in patient's room and she has been dependant for self care, including eating, and does not get up to help with care. No skilled OT needs identified. Will DC OT, with family agreement. JOSIANE DOSHI OT Feb 06, 2018 16:27
[2018-02-06 16:56] VITALS: BP 178/80
[2018-02-06 20:34] VITALS: BP 136/63
[2018-02-06] MEDS: HYDROcodone/APAP 5 MG/325 MG (LORTAB) TAB PO PRN (22:37)
[2018-02-07 00:02] VITALS: BP 129/67
[2018-02-07] MEDS: CEFEPIME INJECTION 2,000 MG in NS (IVPB) 100 ML IV SCH ×2 (03:31→16:41)
[2018-02-07 04:19] VITALS: BP 135/62
[2018-02-07] MEDS: NS IV 1000 ML 1,000 ML IV SCH (05:10)
[2018-02-07] MEDS: inSUlin ASPART (NovoLOG) 1 UNIT/0.01 ML (CHARGE PER UNIT) SC SCH ×4 (05:19→20:49)
[2018-02-07 05:40] LABS: BASOPHILS % (AUTO) 0 % (0-10); EOSINOPHILS # (AUTO) 0.6 10^3/uL (0.0-0.3); EOSINOPHILS % (AUTO) 5 % (0-10); HEMATOCRIT 40 % (35-52); HEMOGLOBIN 13.2 G/DL (11.5-16.0); LYMPHOCYTES # (AUTO) 2.2 X 10^3 (1.0-4.0); LYMPHOCYTES % (AUTO) 18 % (12-44); MEAN CORPUSCULAR HEMOGLOBIN 30 PG (25-34); MEAN CORPUSCULAR HGB CONC 33 G/DL (32-36); MEAN CORPUSCULAR VOLUME 90 FL (80-99); MONOCYTES % (AUTO) 8 % (0-12); NEUTROPHILS # (AUTO) 8.7 X 10^3 (1.8-7.8); NEUTROPHILS % (AUTO) 69 % (42-75); RED BLOOD COUNT 4.43 10^6/uL (4.35-5.85); RED CELL DISTRIBUTION WIDTH 15.1 % (10.0-14.5); WHITE BLOOD COUNT 12.6 10^3/uL (4.3-11.0)
[2018-02-07 05:55] LABS: ALANINE AMINOTRANSFERASE 14 U/L (0-55); ALBUMIN 2.2 GM/DL (3.2-4.5); ALKALINE PHOSPHATASE 76 U/L (40-136); BILIRUBIN,TOTAL 0.3 MG/DL (0.1-1.0); BUN/CREATININE RATIO 40; CALCIUM 7.5 MG/DL (8.5-10.1); CARBON DIOXIDE 18 MMOL/L (21-32); CHLORIDE 117 MMOL/L (98-107); CREATININE SERUM 0.65 MG/DL (0.60-1.30); GFR ESTIMATED > 60; GLUCOSE 89 MG/DL (70-105); POTASSIUM 3.8 MMOL/L (3.6-5.0); SODIUM 142 MMOL/L (135-145)
[2018-02-07 07:28] VITALS: BP 162/78
--- NOTE | 2018-02-07 08:02 | Progress Note-Hospitalist ---
Subjective HPI/CC On Admission Date Seen by Provider: Feb 07, 2018 Time Seen by Provider: 07:57 Pt is a 77yoCF with a PMH of HTN, CVA with residual deficits, and NIDDMII who presented to the ER with CC of decrease urine output and confusion and was admitted for severe sepsis. Subjective/Events-last exam Pt denies any complaints. Stated that the pain pill is helping her pain. Received one last night and denied pain. Has not needed any fentanyl IV since. She stated she would like to sit up in a chair. Will discuss with nursing about positioning bed in chair position. Focused Exam Lactate Level Laboratory Tests 02/05/18 17:08: Lactic Acid Level 2.14*H 02/05/18 19:10: Lactic Acid Level 2.61*H Objective Exam Vital Signs Vital Signs Date Time Temp Pulse Resp B/P (MAP) Pulse Ox O2 Delivery O2 Flow Rate FiO2 02/05/18 14:07 98.0 140 22 88/42 (57) 95 Nasal Cannula 02/05/18 16:25 2.00 Capillary Refill : Less Than 3 Seconds General Appearance: No Apparent Distress, WD/WN Respiratory: Lungs Clear, No Respiratory Distress Cardiovascular: Regular Rate, Rhythm, No Murmur Gastrointestinal: Normal Bowel Sounds, Non Tender, Soft Extremity: Swelling Neurologic/Psychiatric: Other Skin: Other (diffuse erythema and maceration of dependent areas, slightly improved from admission) Results/Procedures Lab Laboratory Tests 02/07/18 05:27 Patient resulted labs reviewed. Imaging: Reviewed Imaging Films, Reviewed Imaging Report Assessment/Plan Assessment and Plan Assess & Plan/Chief Complaint Severe Sepsis Critical Care Critical Care: Critically Ill Patient Diagnosis/Problems Diagnosis/Problems (1) Severe sepsis Status: Acute Assessment & Plan: Improving UA consistent with UTI and skin wounds concerning for cellulitis Blood Cultures sent in ER- likely contaminated Urine culture growing GNR x2- awaiting sensitviies Cont Cefepime and Vanc (2) Thrombocytopenia Status: Acute Assessment & Plan: New today Plts from 436 to 78 Discussed with lab, they will check specimen to ensure no clumping and do manual count May need to recheck Will hold Lovenox until clarified (3) Urinary tract infection Status: Acute Assessment & Plan: Continue Abx as above and await cultures and sensitivities Qualifiers: Urinary tract infection type: catheter-associated UTI Indwelling urinary catheter type: indwelling urethral catheter Encounter type: initial encounter Qualified Codes: T83.511A - Infection and inflammatory reaction due to indwelling urethral catheter, initial encounter; N39.0 - Urinary tract infection, site not specified (4) Non-insulin dependent type 2 diabetes mellitus Status: Chronic Assessment & Plan: SSI (5) HTN (hypertension) Status: Acute Assessment & Plan: BP trending up today Will resume meds incrementally Qualifiers: Hypertension type: essential hypertension Qualified Codes: I10 - Essential (primary) hypertension (6) Morbid obesity Status: Acute Assessment & Plan: Has been bedridden for ~10years per family report PT/OT (7) Intertrigo Status: Acute Assessment & Plan: Nystatin powder (8) Atrial flutter Status: Chronic Assessment & Plan: History of atrial flutter Reviewing Cardiology notes she is to be on Eliquis for a CHADSVASC of 7 I do not see this on her medication list so am unsure why this was taken off Will consult cardiology Considering hospice enrollment Qualifiers: Atrial flutter type: typical Qualified Codes: I48.3 - Typical atrial flutter (9) Discharge planning issues Assessment & Plan: Has previously been advised of need to consider alf care Will consult SW for assistance Family has previously been resistant to this idea Discussed in depth with family yesterday and they are present and willing to provide her the care she needs but patient has been unwilling to participate in it due to pain Will attempt to control pain and see if patient will allow more self care They are also considering hospice enrollment (10) Prophylactic measure Assessment & Plan: Saline Lock ADA diet Hold Lovenox for thrombocytopenia Clinical Quality Measures End of Life/Advance Care Plan: Advance Care discuss with: patient, family member (s) End of Life Care: Pallative Care, Hospice Care (Home) Plan: initiate discussion, identified end-of-life goals, developed treatment plan DVT/VTE Risk/Contraindication: Risk Factor Score Per Nursin RFS Level Per Nursing on Admit: 4+=Very High KAMRAN GROSS MD Feb 07, 2018 8:02 am
[2018-02-07 08:20] LABS: PLATELET COUNT 356 10^3/uL (130-400)
[2018-02-07] MEDS: ENALAPRIL 10 MG (VASOTEC) TAB PO SCH (08:42)
[2018-02-07] MEDS: HYDROcodone/APAP 5 MG/325 MG (LORTAB) TAB PO PRN (08:42)
--- NOTE | 2018-02-07 09:14 | Cardiology Progress Note ---
Subjective Date Seen by Provider: Feb 07, 2018 Time Seen by Provider: 09:11 Subjective/Events-last exam Patient is laying down in bed, more awake today, immobile, denied any chest pain Review of Systems General: No Chills, No Night Sweats, Fatigue, Malaise, No Appetite, No Other HEENT: No Head Aches, No Visual Changes, No Eye Pain, No Ear Pain, No Dysphasia , No Sinus Congestion, No Post Nasal Drip, No Sore Throat, No Other Pulmonary: Dyspnea, No Cough, No Pleuritic Chest Pain, No Other Cardiovascular: Edema, No: Chest Pain, Palpitations, Orthopnea, Paroxysmal Noc. Dyspnea, Lt Headedness, Other Focused Exam Lactate Level Laboratory Tests 02/05/18 17:08: Lactic Acid Level 2.14*H 02/05/18 19:10: Lactic Acid Level 2.61*H Objective-Cardiology Exam Last Set of Vital Signs Vital Signs 02/07/18 07:28 Temp 97.0 Pulse 86 Resp 23 B/P (MAP) 162/78 (106) Pulse Ox 98 O2 Delivery Nasal Cannula O2 Flow Rate 1.00 Capillary Refill : Less Than 3 Seconds I&O Intake and Output 02/07/18 00:00 Intake Total 4275 ml Output Total 900 ml Balance 3375 ml Intake Oral 650 ml IV Total 3625 ml Output Urine Total 900 ml General: Alert, Mild Distress HEENT: Atraumatic, PERRLA Neck: Supple, No Thyromegaly Lungs: Normal Air Movement, Other (Bilateral rhonchi) Heart: Normal S1, Normal S2, No Murmurs, Other (Irregular rhythm) Abdomen: Soft, No Tenderness, No Hepatosplenomegaly, No Masses, Other ( Morbidly obese) Extremities: No Clubbing, Other (Edema and pain) Skin: Other (Multiple skin lesions on the chest and back) Neuro: Normal Speech Results Lab Laboratory Tests 02/07/18 05:27 A/P-Cardiology Admission Diagnosis Sepsis Urinary tract infection Hypotension Paroxysmal atrial fibrillation Assessment/Plan Sepsis, urinary tract infection, hypotension, improving, managed by Wanda care physician. History of paroxysmal atrial fibrillation of unknown duration. Rate is controlled. Not taking any medication at this time. [id number] score is 7, yearly risk of stroke without oral anticoagulation is 9.6 percent, not taking oral anticoagulation, recommended the use of Eliquis, has been on it in the past. Hypotension, blood pressure is better at this time, received IV fluid, sepsis is better. Continue to monitor Questionable history of TIA, patient is reporting history of TIA in the remote past. continue to monitor Diabetes mellitus, followed and managed by primary care physician Morbid obesity, immobility due to obesity Discussion with Dr. Herrera regarding possible hospice on Saturday Clinical Quality Measures DVT/VTE Risk/Contraindication: Risk Factor Score Per Nursin RFS Level Per Nursing on Admit: 4+=Very High RON MITCHELL MD Feb 07, 2018 09:14
[2018-02-07] MEDS: MICONAZOLE 2% POWDER (DESENEX AF) 90 GM TOP SCH ×2 (09:16→20:50)
[2018-02-07 12:00] VITALS: BP 108/59
[2018-02-07] MEDS: fentaNYL INJECTION 100 MCG/2 ML AMP IVP PRN ×2 (12:30→14:37)
[2018-02-07] MEDS: fentaNYL PATCH 25 MCG (DURAGESIC) TD SCH (14:56)
[2018-02-07 15:51] VITALS: BP 116/83
[2018-02-07] MEDS: VANCOMYCIN 2000 MG/NS 500 ML IVPB IV SCH ×2 (16:41)
[2018-02-07 20:00] VITALS: BP 145/87
[2018-02-08] VITALS: BP 130/70
[2018-02-08] MEDS: HYDROcodone/APAP 5 MG/325 MG (LORTAB) TAB PO PRN ×2 (03:34→08:54)
[2018-02-08] MEDS: CEFEPIME INJECTION 2,000 MG in NS (IVPB) 100 ML IV SCH ×2 (03:34→16:15)
[2018-02-08 04:00] VITALS: BP 121/55
[2018-02-08 05:25] LABS: BASOPHILS % (AUTO) 0 % (0-10); EOSINOPHILS # (AUTO) 0.5 10^3/uL (0.0-0.3); EOSINOPHILS % (AUTO) 4 % (0-10); HEMATOCRIT 37 % (35-52); HEMOGLOBIN 11.9 G/DL (11.5-16.0); LYMPHOCYTES # (AUTO) 2.1 X 10^3 (1.0-4.0); LYMPHOCYTES % (AUTO) 18 % (12-44); MEAN CORPUSCULAR HEMOGLOBIN 30 PG (25-34); MEAN CORPUSCULAR HGB CONC 33 G/DL (32-36); MEAN CORPUSCULAR VOLUME 90 FL (80-99); MONOCYTES % (AUTO) 9 % (0-12); NEUTROPHILS % (AUTO) 69 % (42-75); PLATELET COUNT 348 10^3/uL (130-400); RED BLOOD COUNT 4.04 10^6/uL (4.35-5.85); RED CELL DISTRIBUTION WIDTH 15.3 % (10.0-14.5); WHITE BLOOD COUNT 11.6 10^3/uL (4.3-11.0)
[2018-02-08] MEDS: inSUlin ASPART (NovoLOG) 1 UNIT/0.01 ML (CHARGE PER UNIT) SC SCH ×4 (05:26→21:21)
[2018-02-08 05:45] LABS: BUN/CREATININE RATIO 36; CALCIUM 7.8 MG/DL (8.5-10.1); CARBON DIOXIDE 17 MMOL/L (21-32); CHLORIDE 116 MMOL/L (98-107); CREATININE SERUM 0.67 MG/DL (0.60-1.30); GFR ESTIMATED > 60; GLUCOSE 101 MG/DL (70-105); POTASSIUM 3.4 MMOL/L (3.6-5.0); SODIUM 142 MMOL/L (135-145)
[2018-02-08 07:21] VITALS: BP 121/59
[2018-02-08] MEDS: ENALAPRIL 10 MG (VASOTEC) TAB PO SCH (08:53)
[2018-02-08] MEDS: MICONAZOLE 2% POWDER (DESENEX AF) 90 GM TOP SCH ×2 (08:54→20:07)
--- NOTE | 2018-02-08 11:15 | Progress Note-Hospitalist ---
Subjective HPI/CC On Admission Date Seen by Provider: Feb 08, 2018 Time Seen by Provider: 10:55 Pt is a 77yoCF with a PMH of HTN, CVA with residual deficits, and NIDDMII who presented to the ER with CC of decrease urine output and confusion and was admitted for severe sepsis. Subjective/Events-last exam Pt denies pain but otherwise does not speak much. Appears uncomfortable even though denying pain. Discussed with RN who gave 1 dose of Lortab this morning. Focused Exam Lactate Level 02/05/18 17:08: Lactic Acid Level 2.14*H 02/05/18 19:10: Lactic Acid Level 2.61*H Objective Exam Vital Signs Vital Signs Date Time Temp Pulse Resp B/P (MAP) Pulse Ox O2 Delivery O2 Flow Rate FiO2 02/05/18 14:07 98.0 140 22 88/42 (57) 95 Nasal Cannula 02/05/18 16:25 2.00 Capillary Refill : Less Than 3 Seconds General Appearance: Chronically ill, Mild Distress, Obese Respiratory: Lungs Clear, No Respiratory Distress Cardiovascular: Regular Rate, Rhythm, No Murmur Gastrointestinal: Normal Bowel Sounds, Non Tender, Soft Extremity: Swelling Neurologic/Psychiatric: Alert, Disoriented x3 Skin: Erythema Results/Procedures Lab Laboratory Tests 02/08/18 05:14 Patient resulted labs reviewed. Imaging: Reviewed Imaging Films, Reviewed Imaging Report Assessment/Plan Assessment and Plan Assess & Plan/Chief Complaint Severe Sepsis Critical Care Critical Care: Critically Ill Patient Diagnosis/Problems Diagnosis/Problems (1) Severe sepsis Status: Acute Assessment & Plan: Improving UA consistent with UTI and skin wounds concerning for cellulitis Blood Cultures sent in ER- likely contaminated Urine culture growing proteus, e coli, and enterococcus Cont Cefepime and Vanc until Saturday and then will DC home with hospice (2) Thrombocytopenia Status: Acute Assessment & Plan: Lab error- now resolved (3) Urinary tract infection Status: Acute Assessment & Plan: Continue Abx Qualifiers: Urinary tract infection type: catheter-associated UTI Indwelling urinary catheter type: indwelling urethral catheter Encounter type: initial encounter Qualified Codes: T83.511A - Infection and inflammatory reaction due to indwelling urethral catheter, initial encounter; N39.0 - Urinary tract infection, site not specified (4) Non-insulin dependent type 2 diabetes mellitus Status: Chronic Assessment & Plan: SSI (5) HTN (hypertension) Status: Acute Assessment & Plan: Well controlled today Qualifiers: Hypertension type: essential hypertension Qualified Codes: I10 - Essential (primary) hypertension (6) Morbid obesity Status: Acute Assessment & Plan: Has been bedridden for ~10years per family report PT/OT (7) Intertrigo Status: Acute Assessment & Plan: Nystatin powder (8) Atrial flutter Status: Chronic Assessment & Plan: History of atrial flutter Reviewing Cardiology notes she is to be on Eliquis for a CHADSVASC of 7 I do not see this on her medication list so am unsure why this was taken off Will consult cardiology Considering hospice enrollment Qualifiers: Atrial flutter type: typical Qualified Codes: I48.3 - Typical atrial flutter (9) Discharge planning issues Assessment & Plan: Has previously been advised of need to consider care home care Will consult SW for assistance Family has previously been resistant to this idea Discussed in depth with family yesterday and they are present and willing to provide her the care she needs but patient has been unwilling to participate in it due to pain Will attempt to control pain and see if patient will allow more self care Switching to roxanol as patient not tolerating her Lortab well family met with [facility] and has elected to enroll with them (10) Prophylactic measure Assessment & Plan: Saline Lock ADA diet Lovenox Clinical Quality Measures DVT/VTE Risk/Contraindication: Risk Factor Score Per Nursin RFS Level Per Nursing on Admit: 4+=Very High KAMRAN GROSS MD Feb 08, 2018 11:15 am
[2018-02-08] MEDS: ENOXAPARIN 40 MG/0.4 ML (LOVENOX) SYR SC SCH (11:50)
[2018-02-08] MEDS: morphine (ROXINOL) 10 MG/0.5 ML oral conc 0.5 ML PO PRN (11:50)
[2018-02-08 12:00] VITALS: BP 106/57
[2018-02-08] MEDS: fentaNYL INJECTION 100 MCG/2 ML AMP IVP PRN ×2 (12:11→20:06)
[2018-02-08] MEDS ORDERED: TROUGH ORDER-PHARMACY XX NR (15:00)
[2018-02-08] MEDS: VANCOMYCIN 2000 MG/NS 500 ML IVPB IV SCH ×2 (15:38)
[2018-02-08 16:00] VITALS: BP 125/62
--- NOTE | 2018-02-08 17:46 | Wound Care Assessment ---
Wound Care Assessment Date Seen by Provider: Feb 08, 2018 Time Seen by Provider: 17:40 Chief Complaint Multiple areas of intertrigo. HPI The patient is a 77 year old female with a years long history of being bed bound by stroke, obesity, debility, cared for by family at home admitted for urosepsis with diffuse involvement with intertrigo. Daughter states that the patient's skin had been stable and she had allowed frequent repositioning until recently when she had more pain with any repositioning. The intertrigo is responding to topical Nystatin, per report. Unable to visualize L hip area at this time due to patient immobility. Past Medical History: Admits Diabetes Type II Smoking Status: Unknown if Ever Smoked Recreational Drug Use: No Alcohol Use: Denies Use Review of Systems Musculoskeletal: arm pain, back pain, leg pain Neurological: Weakness, Other (minimal verbal response.) Exam Vital Signs Date Time Temp Pulse Resp B/P (MAP) Pulse Ox O2 Delivery O2 Flow Rate FiO2 02/08/18 16:00 97.5 81 23 125/62 (83) 96 Room Air 02/07/18 22:29 1.00 Capillary Refill : Less Than 3 Seconds General Appearance: no apparent distress Respiratory: no respiratory distress Skin: other (Morbidly obese, with contractures, multiple macerated areas in essentially all intertriginous areas.) Results Laboratory Tests 02/07/18 20:40: Glucometer 86 02/08/18 05:14: White Blood Count 11.6H, Red Blood Count 4.04L, Hemoglobin 11.9, Hematocrit 37, Mean Corpuscular Volume 90, Mean Corpuscular Hemoglobin 30, Mean Corpuscular Hemoglobin Concent 33, Red Cell Distribution Width 15.3H, Platelet Count 348, Mean Platelet Volume 9.0, Neutrophils (%) (Auto) 69, Lymphocytes (%) (Auto) 18, Monocytes (%) (Auto) 9, Eosinophils (%) (Auto) 4, Basophils (%) (Auto) 0, Neutrophils # (Auto) 8.0H, Lymphocytes # (Auto) 2.1, Monocytes # (Auto) 1.0, Eosinophils # (Auto) 0.5H, Basophils # (Auto) 0.0, Sodium Level 142, Potassium Level 3.4L, Chloride Level 116H, Carbon Dioxide Level 17L, Anion Gap 9, Blood Urea Nitrogen 24H, Creatinine 0.67, Estimat Glomerular Filtration Rate > 60, BUN /Creatinine Ratio 36, Glucose Level 101, Calcium Level 7.8L 02/08/18 05:17: Glucometer 92 02/08/18 10:54: Glucometer 85 02/08/18 15:00: Vancomycin Level Trough 30.8*H 02/08/18 16:01: Glucometer 68L Microbiology 02/05/18 Blood Culture - Preliminary, Resulted No growth 02/05/18 Urine Culture - Final, Complete Proteus mirabilis Escherichia coli Enterococcus faecalis Assessment/Plan/Dx 1. Morbid obesity. 2. Stroke with L sided hemiplegia 3. Debility. 4. Intertrigo, diffuse. 5. ?Cognitive deficit? Plan: Would recommend continue exact current treatment. Very challenging to care for at home. Discussed with daughter. VIRY VALLES MD Feb 08, 2018 17:46
[2018-02-08 23:30] VITALS: BP 122/68
[2018-02-09] MEDS: CEFEPIME INJECTION 2,000 MG in NS (IVPB) 100 ML IV SCH ×2 (04:04→16:48)
[2018-02-09] MEDS: inSUlin ASPART (NovoLOG) 1 UNIT/0.01 ML (CHARGE PER UNIT) SC SCH ×4 (06:09→21:00)
[2018-02-09 08:33] VITALS: BP 120/73
[2018-02-09] MEDS: MICONAZOLE 2% POWDER (DESENEX AF) 90 GM TOP SCH ×2 (08:36→22:09)
[2018-02-09] MEDS: morphine (ROXINOL) 10 MG/0.5 ML oral conc 0.5 ML PO PRN (10:27)
[2018-02-09] MEDS: ENOXAPARIN 40 MG/0.4 ML (LOVENOX) SYR SC SCH (10:27)
--- NOTE | 2018-02-09 13:02 | Progress Note-Hospitalist ---
Subjective HPI/CC On Admission Date Seen by Provider: Feb 09, 2018 Time Seen by Provider: 12:57 Pt is a 77yoCF with a PMH of HTN, CVA with residual deficits, and NIDDMII who presented to the ER with CC of decrease urine output and confusion and was admitted for severe sepsis. Subjective/Events-last exam Answers few questions. States her pain is better. Believes she has been able to move more. No other complaints. No family at bedside. Objective Exam Vital Signs Vital Signs Date Time Temp Pulse Resp B/P (MAP) Pulse Ox O2 Delivery O2 Flow Rate FiO2 02/05/18 14:07 98.0 140 22 88/42 (57) 95 Nasal Cannula 02/05/18 16:25 2.00 Capillary Refill : Less Than 3 Seconds General Appearance: Chronically ill, Obese Respiratory: Lungs Clear, No Respiratory Distress Cardiovascular: Regular Rate, Rhythm, No Murmur Extremity: Swelling Neurologic/Psychiatric: Alert, Oriented x3 Skin: Erythema Results/Procedures Lab Patient resulted labs reviewed. Imaging: Reviewed Imaging Films, Reviewed Imaging Report Assessment/Plan Assessment and Plan Assess & Plan/Chief Complaint Severe Sepsis Critical Care Critical Care: Critically Ill Patient Diagnosis/Problems Diagnosis/Problems (1) Severe sepsis Status: Resolved Assessment & Plan: UA consistent with UTI and skin wounds concerning for cellulitis Blood Cultures sent in ER- likely contaminated Urine culture growing proteus, e coli, and enterococcus Cont Cefepime and Vanc until Saturday and then will DC home with hospice (2) Thrombocytopenia Status: Resolved Assessment & Plan: Lab error- now resolved (3) Urinary tract infection Status: Resolved Assessment & Plan: Continue Abx Qualifiers: Urinary tract infection type: catheter-associated UTI Indwelling urinary catheter type: indwelling urethral catheter Encounter type: initial encounter Qualified Codes: T83.511A - Infection and inflammatory reaction due to indwelling urethral catheter, initial encounter; N39.0 - Urinary tract infection, site not specified (4) Non-insulin dependent type 2 diabetes mellitus Status: Chronic Assessment & Plan: SSI (5) HTN (hypertension) Status: Acute Assessment & Plan: Well controlled with no medications Qualifiers: Hypertension type: essential hypertension Qualified Codes: I10 - Essential (primary) hypertension (6) Morbid obesity Status: Acute Assessment & Plan: Has been bedridden for ~10years per family report PT/OT (7) Intertrigo Status: Acute Assessment & Plan: Miconazole powder (8) Atrial flutter Status: Chronic Assessment & Plan: History of atrial flutter Reviewing Cardiology notes she is to be on Eliquis for a CHADSVASC of 7 I do not see this on her medication list so am unsure why this was taken off Will consult cardiology Considering hospice enrollment Qualifiers: Atrial flutter type: typical Qualified Codes: I48.3 - Typical atrial flutter (9) Discharge planning issues Assessment & Plan: Has previously been advised of need to consider assisted care Will consult SW for assistance Family has previously been resistant to this idea Discussed in depth with family yesterday and they are present and willing to provide her the care she needs but patient has been unwilling to participate in it due to pain Will attempt to control pain and see if patient will allow more self care Switching to roxanol as patient not tolerating her Lortab well family met with [facility] and has elected to enroll with them will likely Dc home tomorrow with them (10) Prophylactic measure Assessment & Plan: Saline Lock ADA diet Lovenox Clinical Quality Measures DVT/VTE Risk/Contraindication: Risk Factor Score Per Nursin RFS Level Per Nursing on Admit: 4+=Very High KAMRAN GROSS MD Feb 09, 2018 1:02 pm
[2018-02-09] MEDS ORDERED: TROUGH ORDER-PHARMACY XX NR (15:00)
[2018-02-09 16:00] VITALS: BP 141/71
[2018-02-09 23:04] VITALS: BP 139/77
[2018-02-10] MEDS: CEFEPIME INJECTION 2,000 MG in NS (IVPB) 100 ML IV SCH (04:55)
[2018-02-10] MEDS: morphine (ROXINOL) 10 MG/0.5 ML oral conc 0.5 ML PO PRN (05:00)
[2018-02-10] MEDS: inSUlin ASPART (NovoLOG) 1 UNIT/0.01 ML (CHARGE PER UNIT) SC SCH ×3 (06:00→16:38)
[2018-02-10 08:00] VITALS: BP 137/76
[2018-02-10] MEDS: fentaNYL INJECTION 100 MCG/2 ML AMP IVP PRN (08:07)
[2018-02-10] MEDS: MICONAZOLE 2% POWDER (DESENEX AF) 90 GM TOP SCH (08:07)
--- NOTE | 2018-02-10 08:47 | OPERATIVE REPORT ---
DATE OF SERVICE: 02/05/2018 PREOPERATIVE DIAGNOSES: Sepsis, poor venous access and hypotension, urinary tract infection. POSTOPERATIVE DIAGNOSES: Sepsis, poor venous access and hypotension, urinary tract infection. PROCEDURE: Right internal jugular vein ultrasound-guided central line placement. SURGEON: Margie Longoria DO ANESTHESIA: 3 mL of 1% lidocaine. ESTIMATED BLOOD LOSS: Minimal. COMPLICATIONS: None. INDICATIONS: The patient is a 77-year-old female who presented to the Emergency Department with confusion and decreased urine output. Family brought her to the Emergency Department for further evaluation. The patient is septic and is having hypotension. She has poor venous access. A right internal jugular vein has already been attempted in the Emergency Department. Therefore, I was called to see if I could get access for them. The patient's family was discussed risks and benefits and wished to proceed with the procedure. DESCRIPTION OF PROCEDURE: The right internal jugular vein area was prepped and draped in a sterile fashion. Ultrasound was used to locate the right internal jugular vein. Lidocaine was then injected into the area. Once anesthetic effect took place, the right internal jugular vein was then accessed, dark nonpulsatile blood was withdrawn. The guidewire was inserted through the needle and the needle was removed. An 11 blade was used to make a stab incision at the insertion site. A dilator was advanced over the wire and removed. A triple lumen catheter was then inserted over the guidewire and the guidewire was removed. All ports were able to be accessed and flushed without difficulty. The catheter was secured with a Biopatch and with 3-0 nylon. The patient had the area washed and dried and sterile bandage was applied. The patient tolerated the procedure well without any complications. Chest x-ray pending. Job ID: [id number] DocumentID: [id number] Dictated Date: 02/06/2018 15:37:47 [employer] Date: 02/06/2018 20:56:36 Dictated By: MARGIE LONGORIA DO
[2018-02-10] MEDS ORDERED: FENT1PAT8 TD (09:17)
[2018-02-10] MEDS ORDERED: MORP100S3 PO (09:17)
[2018-02-10] MEDS ORDERED: LORA2ORA PO (09:17)
--- NOTE | 2018-02-10 09:19 | Discharge Summary-Hospitalist ---
Diagnosis/Chief Complaint Date of Admission Feb 05, 2018 at 16:48 Date of Discharge Discharge Date: Feb 10, 2018 Admission Diagnosis Severe Sepsis Discharge Diagnosis (1) Severe sepsis Status: Resolved Assessment & Plan: UA consistent with UTI and skin wounds concerning for cellulitis Blood Cultures sent in ER- likely contaminated Urine culture growing proteus, e coli, and enterococcus Cont Cefepime and Vanc until Saturday and then will DC home with hospice (2) Thrombocytopenia Status: Resolved Assessment & Plan: Lab error- now resolved (3) Urinary tract infection Status: Resolved Assessment & Plan: Continue Abx (4) Non-insulin dependent type 2 diabetes mellitus Status: Chronic Assessment & Plan: SSI (5) HTN (hypertension) Status: Acute Assessment & Plan: Well controlled with no medications (6) Morbid obesity Status: Acute Assessment & Plan: Has been bedridden for ~10years per family report PT/OT (7) Intertrigo Status: Acute Assessment & Plan: Miconazole powder (8) Atrial flutter Status: Chronic Assessment & Plan: History of atrial flutter Reviewing Cardiology notes she is to be on Eliquis for a CHADSVASC of 7 I do not see this on her medication list so am unsure why this was taken off Will consult cardiology Considering hospice enrollment (9) Discharge planning issues Assessment & Plan: Has previously been advised of need to consider fdc care Will consult SW for assistance Family has previously been resistant to this idea Discussed in depth with family yesterday and they are present and willing to provide her the care she needs but patient has been unwilling to participate in it due to pain Will attempt to control pain and see if patient will allow more self care Switching to roxanol as patient not tolerating her Lortab well family met with [facility] and has elected to enroll with them will likely Dc home tomorrow with them (10) Prophylactic measure Assessment & Plan: Saline Lock ADA diet Lovenox Discharge Summary Discharge Physical Exam Allergies: Coded Allergies: Penicillins (Verified Allergy, Unknown, Pt has received Cefazolin w/o issue, 02/05/18) Vitals & I&Os Vital Signs Date Time Temp Pulse Resp B/P (MAP) Pulse Ox O2 Delivery O2 Flow Rate FiO2 02/10/18 09:00 Room Air 02/10/18 08:00 97.7 95 22 137/76 (96) 96 02/07/18 22:29 1.00 General Appearance: Other (unresponsive, end of life status) Respiratory: Other (tachypneic mild with upper respiratory gurgles) Hospital Course Patient had a lengthy hospital course after she was dx with severe sepsis due to UTI and decubitus ulcers. Pt was very declined since admit and had been bedridden for 9 years since sustaining a stroke that left her very debilitated. Pt had severe pain issues from the decubitus ulcers and that was managed with pain meds during hospital stay. Overall patient continued to decline and was unable to recover so she was placed on Hospice and treated for end of life pain issues and was DC home to [facility] with her family. The family requested Dr Day to be her doctor at [place]. Labs (last 24 hrs) Laboratory Tests 02/09/18 15:33: Glucometer 88 02/09/18 15:47: Vancomycin Level Trough 23.3H 02/09/18 20:52: Glucometer 137H 02/10/18 05:05: Glucometer 96 02/10/18 11:00: Glucometer 119H Microbiology 02/05/18 Blood Culture - Preliminary, Resulted No growth 02/05/18 Urine Culture - Final, Complete Proteus mirabilis Escherichia coli Enterococcus faecalis Patient resulted labs reviewed. Pending Labs Laboratory Tests 02/10/18 11:00: Glucometer 119 Imaging: Reviewed Imaging Films, Reviewed Imaging Report Discussion & Recommendations Discharge Planning: >30 minutes discharge planning Discharge Home Medications: Active Scripts Active Lorazepam Intensol (Lorazepam) 2 Mg/1 Ml Oral.conc 2 Mg PO Q2H PRN Morphine Sulfate Concentrate 20mg/ml (Morphine Sulfate) 100 Mg/5 Ml Solution 5 Mg PO Q2H PRN Fentanyl Patch 25 MCG (Fentanyl) 1 Each Patch.td72 25 Mcg TD Q72H Instructions to patient/family Please see electronic discharge instructions given to patient. Clinical Quality Measures DVT/VTE Risk/Contraindication: Risk Factor Score Per Nursin RFS Level Per Nursing on Admit: 4+=Very High Problem Qualifiers (1) Urinary tract infection: Urinary tract infection type: catheter-associated UTI Indwelling urinary catheter type: indwelling urethral catheter Encounter type: initial encounter Qualified Codes: T83.511A - Infection and inflammatory reaction due to indwelling urethral catheter, initial encounter; N39.0 - Urinary tract infection, site not specified (2) HTN (hypertension): Hypertension type: essential hypertension Qualified Codes: I10 - Essential ( primary) hypertension (3) Atrial flutter: Atrial flutter type: typical Qualified Codes: I48.3 - Typical atrial flutter ZAC WHITE DO Feb 10, 2018 09:19
[2018-02-10] MEDS: ENOXAPARIN 40 MG/0.4 ML (LOVENOX) SYR SC SCH (10:01)
[2018-02-10] MEDS ORDERED: FENTANYL PATCH REMOVAL TP SCH (13:59)
[2018-02-10] MEDS: fentaNYL PATCH 25 MCG (DURAGESIC) TD SCH (14:05)
[2018-02-10] MEDS ORDERED: TROUGH ORDER-PHARMACY XX NR (15:00)
[2018-02-10 16:22] VITALS: BP 146/78
== END 2018-02-10 17:30 | disposition hospice, home (50) | DRG 698 ==
LOC: EDUNIT# 14:07 → ER 14:08 → 4TH 16:48
PROVIDERS: ADMIT Family Medicine; ATTEND Family Medicine
PROC: 02HV33Z Insertion of Infusion Device into Superior Vena Cava, Percutaneous Approach (ICD-10-PCS; principal; 2018-02-05)
DX: T83.511A Infection and inflammatory reaction due to indwelling urethral catheter, initial encounter (principal); A41.9 Sepsis, unspecified organism; R65.20 Severe sepsis without septic shock; N39.0 Urinary tract infection, site not specified; L03.114 Cellulitis of left upper limb; E87.2 Acidosis; I48.3 Typical atrial flutter; Z68.41 Body mass index [BMI] 40.0-44.9, adult; Z66 Do not resuscitate; I69.354 Hemiplegia and hemiparesis following cerebral infarction affecting left non-dominant side; I48.0 Paroxysmal atrial fibrillation; E11.9 Type 2 diabetes mellitus without complications; L89.220 Pressure ulcer of left hip, unstageable; E86.9 Volume depletion, unspecified; I10 Essential (primary) hypertension; N31.9 Neuromuscular dysfunction of bladder, unspecified; E66.01 Morbid (severe) obesity due to excess calories; L30.4 Erythema intertrigo; B37.2 Candidiasis of skin and nail; F32.9 Major depressive disorder, single episode, unspecified; M62.561 Muscle wasting and atrophy, not elsewhere classified, right lower leg; M62.562 Muscle wasting and atrophy, not elsewhere classified, left lower leg; M19.91 Primary osteoarthritis, unspecified site; Z79.84 Long term (current) use of oral hypoglycemic drugs
CPT/HCPCS: 36415; 71045; 80048; 80053; 80202; 81000; 82962; 83605; 85007; 85025; 85027; 87040; 87077; 87088; 87186; 93005; 96361; 96374